=== PATIENT | male | born 1945 | race Asian ===

== ENCOUNTER 2022-11-13 09:21 | Inpatient (IN) | payer MEDICARE, OTHER ==
[2022-11-13] VITALS (14 sets, daily range): BP systolic 84–138; BP diastolic 34–55; PULSE 46–110; RESP 17–19; TEMP 91–91.4; O2SAT 95–100
[~2022-11-13] VITALS: Ht 160 cm; Wt 50.0 kg
[2022-11-13] MEDS ORDERED: SODIUM CHLORIDE 0.9% 100 ML ONE (09:41)
[2022-11-13] MEDS ORDERED: IOHEXOL 350 MG/ML 100 ML VIAL ONE (09:41)
[2022-11-13] MEDS ORDERED: CALCIUM GLUCONATE 100 MG/ML 10 ML IVP ONE ×2 (09:45)
[2022-11-13] MEDS ORDERED: LABETALOL HCL 5 MG/ML 20 ML VIAL IVP PRN ×2 (09:45)
[2022-11-13] MEDS: OXYGEN THERAPY IH SCH ×2 (09:45→20:44)
[2022-11-13] MEDS ORDERED: ROCURONIUM BROMIDE 10 MG/ML 5 ML VIAL IVP ONE ×2 (09:45)
[2022-11-13 09:51] LABS: BASOPHILS % (AUTO) 0.2 % (0.0-2.0); EOSINOPHILS % (AUTO) 0.6 % (1.0-6.0); HEMOGLOBIN 9.7 g/dL (13.5-17.5); LYMPHOCYTES # (AUTO) 0.5 K/uL (1.0-4.8); LYMPHOCYTES % (AUTO) 8.2 % (22.0-44.0); MEAN CORPUSCULAR HEMOGLOBIN 36.4 pg (26.0-34.0); MEAN CORPUSCULAR HGB CONC 33.4 G/dL (31.0-37.0); MEAN CORPUSCULAR VOLUME 109 fL (80-100); MONOCYTES # (AUTO) 0.4 K/uL (0.1-1.0); MONOCYTES % (AUTO) 6.2 % (2.0-9.0); NEUTROPHILS # (AUTO) 5.6 K/uL (1.8-7.7); NEUTROPHILS % (AUTO) 84.8 % (40.0-70.0); PLATELET COUNT (AUTO) 110 K/uL (150-450); RED BLOOD CELL COUNT(AUTO) 2.67 MIL/uL (4.50-5.90); RED CELL DISTRIBUTION WIDTH 16.6 % (11.5-14.5)
[2022-11-13 10:05] LABS: INR 1.1 (0.9-1.1); PROTHROMBIN TIME 11.2 SEC (9.4-11.6)
[2022-11-13 10:07] LABS: CALCIUM, TOTAL 7.8 mg/dL (8.8-10.5); CREATININE 5.51 mg/dL (0.60-1.30); POTASSIUM 4.3 mmol/L (3.5-5.1)
[2022-11-13 10:12] LABS: ALBUMIN 2.5 g/dL (3.4-5.0); BILIRUBIN,TOTAL 0.5 mg/dL (0.1-1.0); TOTAL PROTEIN, SERUM 6.3 g/dL (6.4-8.2)
[2022-11-13] MEDS ORDERED: AMIODARONE HCL 50 MG/ML 3 ML VIAL IVP ONE (10:30)
[2022-11-13] MEDS ORDERED: NOREPINEPHRINE 8 MG/0.9 % NACL 250 ML IV ONE (10:58)
[2022-11-13] MEDS: NOREPINEPHRINE 8 MG/0.9 % NACL 250 ML IV PRN (11:07)
[2022-11-13 11:28] LABS: ABG BASE EXCESS -6.2 mmol/L (-2.0-3.0); ABG CARBOXYHEMOGLOBIN 0.7 % (0.0-1.5); ABG HCO3 19.8 mmol/L (22.0-26.0); ABG METHEMOGLOBIN 0.3 % (0.0-1.5); ABG OXYGEN CONTENT 14.1 mL/dL (15.0-23.0); ABG OXYGEN SATURATION 97.2 % (95.0-98.0); ABG OXYHEMOGLOBIN 96.2 % (94.0-100.0); ABG PCO2 39 mmHg (35-45); ABG PH 7.326 (7.35-7.450); ABG TOTAL HEMOGLOBIN 10.3 G/dL (12.0-18.0); PO2, ARTERIAL BG 109.1 mmHg (75.0-83.0); SOURCE, BLOOD GAS ARTERIAL; TEMPERATURE, FAHRENHEIT, BG 98.5 FAHREN (96.0-98.6)
[2022-11-13 11:30] LABS: ABG A-A DIFF O2 565.5 mmHg (10-20.0); O2 DEVICE,BLOOD GAS VENTILATOR (ROOM AIR); SITE, BLOOD GAS RT BRACHIAL
[2022-11-13 11:31] LABS: PEEP,BG 5 cm H2O; SPONTANEOUS VT, BG 576 ml; VT, ABG 420 ml
[2022-11-13] MEDS ORDERED: PHENYLEPHRINE 200 MG/D5%-WATER 250 ML IV PRN (11:45)
[2022-11-13] MEDS ORDERED: LEVO75 PO (14:08)
[2022-11-13] MEDS ORDERED: GABA-1216 PO (14:08)
[2022-11-13 14:22] LABS: LACTIC ACID 2.9 mmol/L (0.4-2.0)
[2022-11-13 16:07] LABS: COVID AG,FIA SOURCE NASOPHARYNGEAL
[2022-11-13] MEDS ORDERED: AMIODARONE HCL 360 MG in DEXTROSE 5%-WATER 242.8 ML IV ONE (16:15)
[2022-11-13] MEDS ORDERED: ONDANSETRON HCL 4 MG/2 ML VIAL IVP PRN (19:00)
[2022-11-13] MEDS ORDERED: BISACODYL 10 MG RECTAL RECTAL SUPPOSITORY PR PRN (19:00)
[2022-11-13] MEDS ORDERED: MAGNESIUM HYDROXIDE SUSPENSION 30 ML UDCUP PO PRN (19:00)
[2022-11-13] MEDS ORDERED: PIPERACILLIN/TAZO 3.375 GM/D5W 50 ML IV SCH (19:15)
[2022-11-13 20:01] LABS: CALCIUM, TOTAL 7.1 mg/dL (8.8-10.5); CREATININE 5.28 mg/dL (0.60-1.30); POTASSIUM 3.6 mmol/L (3.5-5.1)
[2022-11-13 20:07] LABS: ALBUMIN 2.1 g/dL (3.4-5.0); BILIRUBIN,TOTAL 0.7 mg/dL (0.1-1.0); MAGNESIUM 2.1 mg/dL (1.80-2.40); PHOSPHORUS 5.4 mg/dL (2.5-4.9); TOTAL PROTEIN, SERUM 5.5 g/dL (6.4-8.2)
[2022-11-13 20:33] LABS: ABG A-A DIFF O2 388.8 mmHg (10-20.0); ABG BASE EXCESS -7.7 mmol/L (-2.0-3.0); ABG HCO3 18.7 mmol/L (22.0-26.0); ABG METHEMOGLOBIN 0.3 % (0.0-1.5); ABG OXYGEN CONTENT 14.6 mL/dL (15.0-23.0); ABG OXYGEN SATURATION 98.4 % (95.0-98.0); ABG OXYHEMOGLOBIN 97.1 % (94.0-100.0); ABG PCO2 33 mmHg (35-45); ABG PH 7.351 (7.35-7.450); ABG TOTAL HEMOGLOBIN 10.5 G/dL (12.0-18.0); O2 DEVICE,BLOOD GAS VENT (ROOM AIR); PO2, ARTERIAL BG 114.6 mmHg (75.0-83.0); SITE, BLOOD GAS ARTERIAL LINE; SOURCE, BLOOD GAS ARTERIAL; TEMPERATURE, FAHRENHEIT, BG 94.8 FAHREN (96.0-98.6); VT, ABG 420 ml
[2022-11-13 20:34] LABS: PEEP,BG 5 cm H2O
[2022-11-13] MEDS: PIPERACILLIN SODIUM/TAZOBACTAM 2.25 GM in DEXTROSE 5%-WATER 50 ML IV SCH (20:44)
[2022-11-13] MEDS: DOCUSATE SODIUM 100 MG CAPSULE PO SCH (20:45)
[2022-11-13] MEDS ORDERED: VANCOMYCIN 1GM/WATER(PEG/NADA) 200 ML IV ONE (21:15)
[2022-11-13] MEDS ORDERED: VANCOMYCIN 1GM/WATER(PEG/NADA) 200 ML IV PRN (21:15)
[2022-11-13 21:23] LABS: CALCIUM, TOTAL 7.1 mg/dL (8.8-10.5); CREATININE 5.38 mg/dL (0.60-1.30); POTASSIUM 3.5 mmol/L (3.5-5.1)
[2022-11-13 21:26] LABS: PHOSPHORUS 5.4 mg/dL (2.5-4.9)
[2022-11-13] MEDS ORDERED: AMIODARONE HCL 540 MG in DEXTROSE 5%-WATER 239.2 ML IV ONE (22:30)
[2022-11-14] VITALS (47 sets, daily range): BP systolic 66–160; BP diastolic 29–93; PULSE 44–73; RESP 18–23; TEMP 91.2–99; O2SAT 96–100
[2022-11-14 02:00] LABS: ABG BASE EXCESS -10.4 mmol/L (-2.0-3.0); ABG CARBOXYHEMOGLOBIN 0.4 % (0.0-1.5); ABG HCO3 16.9 mmol/L (22.0-26.0); ABG METHEMOGLOBIN 0.3 % (0.0-1.5); ABG OXYGEN CONTENT 14.4 mL/dL (15.0-23.0); ABG OXYGEN SATURATION 99.2 % (95.0-98.0); ABG OXYHEMOGLOBIN 98.5 % (94.0-100.0); ABG PCO2 28 mmHg (35-45); ABG PH 7.351 (7.35-7.450); SOURCE, BLOOD GAS ARTERIAL; TEMPERATURE, FAHRENHEIT, BG 92.4 FAHREN (96.0-98.6)
[2022-11-14 02:01] LABS: ABG A-A DIFF O2 311.7 mmHg (10-20.0); O2 DEVICE,BLOOD GAS VENT (ROOM AIR); PEEP,BG 5 cm H2O; SITE, BLOOD GAS ARTERIAL LINE; VT, ABG 420 ml
[2022-11-14 02:33] LABS: ALBUMIN 2.3 g/dL (3.4-5.0); BILIRUBIN,TOTAL 0.7 mg/dL (0.1-1.0); CALCIUM, TOTAL 7.2 mg/dL (8.8-10.5); CREATININE 5.34 mg/dL (0.60-1.30); MAGNESIUM 2.2 mg/dL (1.80-2.40); PHOSPHORUS 5.5 mg/dL (2.5-4.9); POTASSIUM 3.6 mmol/L (3.5-5.1); TOTAL PROTEIN, SERUM 5.8 g/dL (6.4-8.2)
[2022-11-14] MEDS: PIPERACILLIN SODIUM/TAZOBACTAM 2.25 GM in DEXTROSE 5%-WATER 50 ML IV SCH ×3 (04:27→20:24)
[2022-11-14 07:54] LABS: BASOPHILS % (AUTO) 0.2 % (0.0-2.0); EOSINOPHILS % (AUTO) 1.1 % (1.0-6.0); HEMATOCRIT 28.4 % (41-53); HEMOGLOBIN 9.4 g/dL (13.5-17.5); LYMPHOCYTES # (AUTO) 0.1 K/uL (1.0-4.8); LYMPHOCYTES % (AUTO) 1.8 % (22.0-44.0); MEAN CORPUSCULAR HEMOGLOBIN 36.2 pg (26.0-34.0); MEAN CORPUSCULAR HGB CONC 33.1 G/dL (31.0-37.0); MEAN CORPUSCULAR VOLUME 109 fL (80-100); MONOCYTES # (AUTO) 0.4 K/uL (0.1-1.0); MONOCYTES % (AUTO) 5.6 % (2.0-9.0); NEUTROPHILS # (AUTO) 6.9 K/uL (1.8-7.7); PLATELET COUNT (AUTO) 112 K/uL (150-450); RED CELL DISTRIBUTION WIDTH 16.4 % (11.5-14.5)
[2022-11-14 07:57] LABS: NEUTROPHILS % (AUTO) 91.3 % (40.0-70.0)
[2022-11-14 08:13] LABS: ALBUMIN 2.2 g/dL (3.4-5.0); BILIRUBIN,TOTAL 0.8 mg/dL (0.1-1.0); CALCIUM, TOTAL 7.3 mg/dL (8.8-10.5); CREATININE 5.48 mg/dL (0.60-1.30); MAGNESIUM 2.1 mg/dL (1.80-2.40); PHOSPHORUS 6.2 mg/dL (2.5-4.9); POTASSIUM 4.7 mmol/L (3.5-5.1)
[2022-11-14] MEDS: NOREPINEPHRINE 8 MG/0.9 % NACL 250 ML IV PRN (08:23)
[2022-11-14] MEDS: AMIODARONE HCL 200 MG TABLET NG SCH ×3 (09:52→21:00)
[2022-11-14] MEDS: PANTOPRAZOLE SODIUM 40 MG/VIAL IVP SCH (09:52)
[2022-11-14] MEDS: DOCUSATE SODIUM 100 MG CAPSULE PO SCH ×2 (09:54→22:19)
[2022-11-14] MEDS ORDERED: HEPARIN SODIUM,PORCINE 1,000 UNITS/ML VIAL IVP ONE (12:00)
[2022-11-14] MEDS: DEXMEDETOMIDINE HCL 400 MCG in SODIUM CHLORIDE 0.9% 96 ML IV PRN (15:08)
[2022-11-14] MEDS: MORPHINE SULFATE 2 MG/ML SYRINGE IVP PRN (15:55)
[2022-11-14] MEDS: ACETAMINOPHEN 325 MG TABLET PO PRN (15:55)
[2022-11-14 16:10] LABS: ALBUMIN 2.3 g/dL (3.4-5.0); BILIRUBIN,TOTAL 0.8 mg/dL (0.1-1.0); CALCIUM, TOTAL 7.3 mg/dL (8.8-10.5); CREATININE 5.41 mg/dL (0.60-1.30); MAGNESIUM 2.1 mg/dL (1.80-2.40); PHOSPHORUS 5.7 mg/dL (2.5-4.9); POTASSIUM 4.6 mmol/L (3.5-5.1); TOTAL PROTEIN, SERUM 5.9 g/dL (6.4-8.2)
[2022-11-14] MEDS ORDERED: AMIODARONE HCL 750 MG in DEXTROSE 5%-WATER 485 ML IV SCH (16:15)
[2022-11-14] MEDS ORDERED: EPINEPHrine 1:10,000 [1 MG/10 ML] SYRINGE IVP ONE (17:18)
[2022-11-14] MEDS ORDERED: SODIUM CHLORIDE 0.9% 1,000 ML ONE (18:46)
[2022-11-14] MEDS ORDERED: SEVE0.8P6 PO (19:32)
[2022-11-14] MEDS ORDERED: HEPA500018 SQ (19:32)
[2022-11-14] MEDS ORDERED: HYDR2TAB37 PO (19:32)
[2022-11-14] MEDS ORDERED: ASCO500C6 PO (19:32)
[2022-11-14] MEDS ORDERED: GABA-1216 PO (19:32)
[2022-11-14] MEDS ORDERED: MELA5TAB40 PO (19:32)
[2022-11-14] MEDS ORDERED: MULT-248 PO (19:32)
[2022-11-14] MEDS ORDERED: ERGO500054 PO (19:32)
[2022-11-14] MEDS ORDERED: HYDR-4723 PO (19:32)
[2022-11-14 20:58] LABS: ALBUMIN 2.6 g/dL (3.4-5.0); BILIRUBIN,TOTAL 0.8 mg/dL (0.1-1.0); CALCIUM, TOTAL 8.5 mg/dL (8.8-10.5); CREATININE 2.92 mg/dL (0.60-1.30); PHOSPHORUS 2.9 mg/dL (2.5-4.9); POTASSIUM 3.9 mmol/L (3.5-5.1); TOTAL PROTEIN, SERUM 6.6 g/dL (6.4-8.2)
[2022-11-14] MEDS ORDERED: SODIUM CHLORIDE 0.9% 250 ML IV ONE (21:50)
[2022-11-14] MEDS ORDERED: HEPARIN SODIUM,PORCINE 1,000 UNITS/ML VIAL IVCATH ONE ×2 (22:00)
[2022-11-15] VITALS (17 sets, daily range): BP systolic 110–180; BP diastolic 36–49; PULSE 47–63; RESP 16–24; TEMP 98.4–100.1; O2SAT 98–100
[2022-11-15] MEDS: PIPERACILLIN SODIUM/TAZOBACTAM 2.25 GM in DEXTROSE 5%-WATER 50 ML IV SCH ×4 (03:58→21:09)
[2022-11-15] MEDS ORDERED: SODIUM CHLORIDE 0.9% 250 ML IV ONE (05:13)
[2022-11-15] MEDS: NOREPINEPHRINE 8 MG/0.9 % NACL 250 ML IV PRN (05:20)
[2022-11-15 05:31] LABS: BASOPHILS % (AUTO) 0.1 % (0.0-2.0); EOSINOPHILS % (AUTO) 0.1 % (1.0-6.0); HEMATOCRIT 24.2 % (41-53); HEMOGLOBIN 8.2 g/dL (13.5-17.5); LYMPHOCYTES # (AUTO) 0.2 K/uL (1.0-4.8); LYMPHOCYTES % (AUTO) 2.3 % (22.0-44.0); MEAN CORPUSCULAR HEMOGLOBIN 35.9 pg (26.0-34.0); MEAN CORPUSCULAR HGB CONC 33.7 G/dL (31.0-37.0); MEAN CORPUSCULAR VOLUME 107 fL (80-100); MONOCYTES # (AUTO) 0.4 K/uL (0.1-1.0); MONOCYTES % (AUTO) 5.7 % (2.0-9.0); NEUTROPHILS # (AUTO) 6.1 K/uL (1.8-7.7); PLATELET COUNT (AUTO) 101 K/uL (150-450); RED BLOOD CELL COUNT(AUTO) 2.27 MIL/uL (4.50-5.90); RED CELL DISTRIBUTION WIDTH 16.3 % (11.5-14.5)
[2022-11-15 05:42] LABS: ALBUMIN 2.1 g/dL (3.4-5.0); BILIRUBIN,TOTAL 0.9 mg/dL (0.1-1.0); CALCIUM, TOTAL 7.7 mg/dL (8.8-10.5); CREATININE 2.66 mg/dL (0.60-1.30); POTASSIUM 3.5 mmol/L (3.5-5.1); TOTAL PROTEIN, SERUM 5.7 g/dL (6.4-8.2)
[2022-11-15 06:24] LABS: NEUTROPHILS % (AUTO) 91.8 % (40.0-70.0)
[2022-11-15] MEDS ORDERED: VANCOMYCIN HCL 750 MG in DEXTROSE 5%-WATER 250 ML IV ONE (08:00)
[2022-11-15] MEDS: PANTOPRAZOLE SODIUM 40 MG/VIAL IVP SCH (09:22)
[2022-11-15] MEDS: ACETAMINOPHEN 325 MG TABLET PO PRN (09:23)
[2022-11-15] MEDS: DOCUSATE SODIUM 100 MG CAPSULE PO SCH ×2 (09:23→21:10)
[2022-11-15] MEDS: MORPHINE SULFATE 2 MG/ML SYRINGE IVP PRN ×2 (09:23→18:31)
[2022-11-15 13:59] LABS: ABG BASE EXCESS 0.2 mmol/L (-2.0-3.0); ABG HCO3 24.8 mmol/L (22.0-26.0); ABG METHEMOGLOBIN 0.3 % (0.0-1.5); ABG OXYGEN CONTENT 10.8 mL/dL (15.0-23.0); ABG OXYHEMOGLOBIN 95.7 % (94.0-100.0); ABG PCO2 33 mmHg (35-45); ABG PH 7.476 (7.35-7.450); PO2, ARTERIAL BG 91.3 mmHg (75.0-83.0); SOURCE, BLOOD GAS ARTERIAL; TEMPERATURE, FAHRENHEIT, BG 100.4 FAHREN (96.0-98.6)
[2022-11-15 14:00] LABS: ABG A-A DIFF O2 83.1 mmHg (10-20.0); ABG TOTAL HEMOGLOBIN 7.9 G/dL (12.0-18.0); O2 DEVICE,BLOOD GAS VENTILATOR (ROOM AIR); SITE, BLOOD GAS ARTERIAL LINE; VENT MODE, BG CPAP (ROOM AIR)
[2022-11-15 14:01] LABS: CPAP, BG 5 cm H2O; PRESSURE SUPPORT, BG 8 cm H2O; SPONTANEOUS VT, BG 791 ml
[2022-11-15] MEDS: DEXMEDETOMIDINE HCL 400 MCG in SODIUM CHLORIDE 0.9% 96 ML IV PRN (14:56)
[2022-11-16] VITALS (16 sets, daily range): BP systolic 106–129; BP diastolic 32–39; PULSE 43–95; RESP 18–24; TEMP 99–100.5; O2SAT 88–100
[2022-11-16] MEDS: PIPERACILLIN SODIUM/TAZOBACTAM 2.25 GM in DEXTROSE 5%-WATER 50 ML IV SCH ×3 (03:05→20:36)
[2022-11-16] MEDS: ACETAMINOPHEN 325 MG TABLET PO PRN ×2 (03:05→18:56)
[2022-11-16 05:34] LABS: BASOPHILS % (AUTO) 0.1 % (0.0-2.0); EOSINOPHILS % (AUTO) 0.3 % (1.0-6.0); HEMATOCRIT 23.6 % (41-53); HEMOGLOBIN 7.9 g/dL (13.5-17.5); LYMPHOCYTES # (AUTO) 0.2 K/uL (1.0-4.8); LYMPHOCYTES % (AUTO) 2.9 % (22.0-44.0); MEAN CORPUSCULAR HEMOGLOBIN 35.7 pg (26.0-34.0); MEAN CORPUSCULAR HGB CONC 33.5 G/dL (31.0-37.0); MEAN CORPUSCULAR VOLUME 106 fL (80-100); MONOCYTES # (AUTO) 0.3 K/uL (0.1-1.0); MONOCYTES % (AUTO) 4.7 % (2.0-9.0); NEUTROPHILS # (AUTO) 6.7 K/uL (1.8-7.7); PLATELET COUNT (AUTO) 105 K/uL (150-450); RED BLOOD CELL COUNT(AUTO) 2.22 MIL/uL (4.50-5.90); RED CELL DISTRIBUTION WIDTH 16.4 % (11.5-14.5)
[2022-11-16 05:50] LABS: BILIRUBIN,TOTAL 0.8 mg/dL (0.1-1.0); CALCIUM, TOTAL 7.6 mg/dL (8.8-10.5); CREATININE 3.79 mg/dL (0.60-1.30); POTASSIUM 3.4 mmol/L (3.5-5.1); TOTAL PROTEIN, SERUM 5.5 g/dL (6.4-8.2)
[2022-11-16 05:52] LABS: PHOSPHORUS 2.7 mg/dL (2.5-4.9)
[2022-11-16] MEDS ORDERED: SODIUM CHLORIDE 0.9% 500 ML IV ONE (06:01)
[2022-11-16 10:46] LABS: HEMATOCRIT 23.1 % (41-53); HEMOGLOBIN 7.5 g/dL (13.5-17.5)
[2022-11-16] MEDS: PANTOPRAZOLE SODIUM 40 MG/VIAL IVP SCH (12:00)
[2022-11-16] MEDS: DOCUSATE SODIUM 100 MG CAPSULE PO SCH ×2 (12:00→20:36)
[2022-11-16] MEDS: DEXMEDETOMIDINE HCL 400 MCG in SODIUM CHLORIDE 0.9% 96 ML IV PRN (20:37)
[2022-11-17] VITALS (18 sets, daily range): BP systolic 91–126; BP diastolic 37–95; PULSE 48–93; RESP 16–20; TEMP 97.4–99.8; O2SAT 99–100
[2022-11-17] MEDS: PIPERACILLIN SODIUM/TAZOBACTAM 2.25 GM in DEXTROSE 5%-WATER 50 ML IV SCH ×3 (04:12→20:24)
[2022-11-17 06:01] LABS: BASOPHILS % (AUTO) 0.1 % (0.0-2.0); EOSINOPHILS % (AUTO) 0.9 % (1.0-6.0); HEMATOCRIT 24.3 % (41-53); HEMOGLOBIN 7.9 g/dL (13.5-17.5); LYMPHOCYTES # (AUTO) 0.3 K/uL (1.0-4.8); LYMPHOCYTES % (AUTO) 4.1 % (22.0-44.0); MEAN CORPUSCULAR HEMOGLOBIN 34.4 pg (26.0-34.0); MEAN CORPUSCULAR HGB CONC 32.4 G/dL (31.0-37.0); MEAN CORPUSCULAR VOLUME 106 fL (80-100); MONOCYTES # (AUTO) 0.5 K/uL (0.1-1.0); MONOCYTES % (AUTO) 7.1 % (2.0-9.0); PLATELET COUNT (AUTO) 111 K/uL (150-450); RED BLOOD CELL COUNT(AUTO) 2.28 MIL/uL (4.50-5.90); RED CELL DISTRIBUTION WIDTH 16.6 % (11.5-14.5)
[2022-11-17 06:15] LABS: ALBUMIN 1.9 g/dL (3.4-5.0); BILIRUBIN,TOTAL 0.8 mg/dL (0.1-1.0); CALCIUM, TOTAL 7.7 mg/dL (8.8-10.5); CREATININE 4.6 mg/dL (0.60-1.30); POTASSIUM 3.4 mmol/L (3.5-5.1); TOTAL PROTEIN, SERUM 5.7 g/dL (6.4-8.2)
[2022-11-17 06:38] LABS: NEUTROPHILS % (AUTO) 87.8 % (40.0-70.0)
[2022-11-17] MEDS: PANTOPRAZOLE SODIUM 40 MG/VIAL IVP SCH (08:34)
[2022-11-17] MEDS: DOCUSATE SODIUM 100 MG CAPSULE PO SCH ×2 (08:34→20:25)
[2022-11-17] MEDS: EPOETIN ALFA 10,000 UNITS/ML VIAL SQ SCH (11:57)
[2022-11-17] MEDS ORDERED: HEPARIN SODIUM,PORCINE 1,000 UNITS/ML VIAL IVP ONE (12:00)
[2022-11-17 12:57] LABS: ABG BASE EXCESS 1.6 mmol/L (-2.0-3.0); ABG CARBOXYHEMOGLOBIN 1.2 % (0.0-1.5); ABG HCO3 25.9 mmol/L (22.0-26.0); ABG METHEMOGLOBIN 0.3 % (0.0-1.5); ABG OXYGEN CONTENT 11.9 mL/dL (15.0-23.0); ABG OXYGEN SATURATION 98.1 % (95.0-98.0); ABG OXYHEMOGLOBIN 96.6 % (94.0-100.0); ABG PCO2 38 mmHg (35-45); ABG PH 7.445 (7.35-7.450); ABG TOTAL HEMOGLOBIN 8.6 G/dL (12.0-18.0); PO2, ARTERIAL BG 107.7 mmHg (75.0-83.0); SOURCE, BLOOD GAS ARTERIAL; TEMPERATURE, FAHRENHEIT, BG 97.9 FAHREN (96.0-98.6)
[2022-11-17 12:58] LABS: ABG A-A DIFF O2 61.6 mmHg (10-20.0); O2 DEVICE,BLOOD GAS VENTILATOR (ROOM AIR); SITE, BLOOD GAS RT RADIAL
[2022-11-17 13:01] LABS: PEEP,BG 5 cm H2O; PRESSURE SUPPORT, BG 10 cm H2O; SPONTANEOUS VT, BG 413 ml
[2022-11-17 13:03] LABS: VENT MODE, BG SPONTANEOUS (ROOM AIR); VT, ABG 420 ml
[2022-11-17] MEDS ORDERED: DEXTROSE 50%-WATER 25 GM/50 ML SYRINGE IVP PRN (13:15)
[2022-11-17] MEDS: INSULIN LISPRO 100 UNITS/ML SQ PRN (13:24)
[2022-11-17] MEDS ORDERED: SODIUM CHLORIDE 0.9% 2,000 ML ONE (15:52)
[2022-11-17] MEDS ORDERED: HEPARIN SODIUM,PORCINE 1,000 UNITS/ML VIAL IVCATH ONE ×2 (19:15)
[2022-11-17] MEDS: NOREPINEPHRINE 8 MG/0.9 % NACL 250 ML IV PRN (20:24)
[2022-11-17] MEDS: MORPHINE SULFATE 2 MG/ML SYRINGE IVP PRN (21:09)
[2022-11-18] VITALS: BP 88/73; PULSE 94; RESP 20; TEMP 98
[2022-11-18 04:00] VITALS: BP 98/64; PULSE 86; PULSE 91; RESP 18; TEMP 98.1
[2022-11-18] MEDS: PIPERACILLIN SODIUM/TAZOBACTAM 2.25 GM in DEXTROSE 5%-WATER 50 ML IV SCH ×3 (04:03→20:05)
[2022-11-18 05:41] LABS: EOSINOPHILS % (AUTO) 0.1 % (1.0-6.0); HEMATOCRIT 24.3 % (41-53); HEMOGLOBIN 7.9 g/dL (13.5-17.5); LYMPHOCYTES # (AUTO) 0.2 K/uL (1.0-4.8); LYMPHOCYTES % (AUTO) 3.3 % (22.0-44.0); MEAN CORPUSCULAR HEMOGLOBIN 34.7 pg (26.0-34.0); MEAN CORPUSCULAR HGB CONC 32.5 G/dL (31.0-37.0); MEAN CORPUSCULAR VOLUME 107 fL (80-100); MONOCYTES # (AUTO) 0.6 K/uL (0.1-1.0); MONOCYTES % (AUTO) 9.1 % (2.0-9.0); PLATELET COUNT (AUTO) 110 K/uL (150-450); RED BLOOD CELL COUNT(AUTO) 2.27 MIL/uL (4.50-5.90); RED CELL DISTRIBUTION WIDTH 16.5 % (11.5-14.5)
[2022-11-18 05:46] LABS: NEUTROPHILS % (AUTO) 87.5 % (40.0-70.0)
[2022-11-18 05:55] LABS: ALBUMIN 2.1 g/dL (3.4-5.0); CALCIUM, TOTAL 7.8 mg/dL (8.8-10.5); CREATININE 2.44 mg/dL (0.60-1.30); POTASSIUM 3.5 mmol/L (3.5-5.1); TOTAL PROTEIN, SERUM 6.1 g/dL (6.4-8.2); VANCOMYCIN,RANDOM 16.9 mcg/mL (25.0-50.0)
[2022-11-18 08:00] VITALS: BP 107/49; PULSE 84; RESP 18; TEMP 97.8
[2022-11-18] MEDS: DOCUSATE SODIUM 100 MG CAPSULE PO SCH ×2 (09:00→20:07)
[2022-11-18] MEDS: PANTOPRAZOLE SODIUM 40 MG/VIAL IVP SCH (09:17)
[2022-11-18 12:00] VITALS: BP 91/36; PULSE 85; RESP 17; TEMP 97.7
[2022-11-18] MEDS ORDERED: VANCOMYCIN HCL 750 MG in DEXTROSE 5%-WATER 250 ML IV ONE (12:00)
[2022-11-18] MEDS ORDERED: HydrALAZINE HCL 20 MG/ML VIAL IVP PRN (14:15)
[2022-11-18 16:00] VITALS: BP 126/43; PULSE 75; RESP 16; TEMP 98.3
[2022-11-18] MEDS ORDERED: SODIUM CHLORIDE 0.9% 250 ML IV ONE (16:02)
[2022-11-18 20:00] VITALS: BP 132/48; PULSE 78; PULSE 84; RESP 18; TEMP 98.8
[2022-11-18] MEDS: MORPHINE SULFATE 2 MG/ML SYRINGE IVP PRN (20:07)
[2022-11-18 23:06] LABS: QUANTIFERON, TB GOLD PLUS Positive (Negative)
[2022-11-19] VITALS (14 sets, daily range): BP systolic 110–136; BP diastolic 36–44; PULSE 62–79; RESP 17–20; TEMP 97.8–98.7
[2022-11-19] MEDS: MORPHINE SULFATE 2 MG/ML SYRINGE IVP PRN ×2 (01:14→22:44)
[2022-11-19] MEDS: PIPERACILLIN SODIUM/TAZOBACTAM 2.25 GM in DEXTROSE 5%-WATER 50 ML IV SCH ×3 (04:27→20:27)
[2022-11-19 05:51] LABS: EOSINOPHILS % (AUTO) 0.6 % (1.0-6.0); HEMATOCRIT 21.7 % (41-53); HEMOGLOBIN 7.1 g/dL (13.5-17.5); LYMPHOCYTES # (AUTO) 0.3 K/uL (1.0-4.8); LYMPHOCYTES % (AUTO) 5.3 % (22.0-44.0); MEAN CORPUSCULAR HEMOGLOBIN 34.8 pg (26.0-34.0); MEAN CORPUSCULAR HGB CONC 32.5 G/dL (31.0-37.0); MEAN CORPUSCULAR VOLUME 107 fL (80-100); MONOCYTES # (AUTO) 0.5 K/uL (0.1-1.0); MONOCYTES % (AUTO) 8.1 % (2.0-9.0); PLATELET COUNT (AUTO) 105 K/uL (150-450); RED BLOOD CELL COUNT(AUTO) 2.03 MIL/uL (4.50-5.90); RED CELL DISTRIBUTION WIDTH 16.6 % (11.5-14.5)
[2022-11-19 06:14] LABS: ALBUMIN 1.9 g/dL (3.4-5.0); BILIRUBIN,TOTAL 0.8 mg/dL (0.1-1.0); CALCIUM, TOTAL 7.3 mg/dL (8.8-10.5); CREATININE 3.65 mg/dL (0.60-1.30); POTASSIUM 3.7 mmol/L (3.5-5.1); TOTAL PROTEIN, SERUM 5.7 g/dL (6.4-8.2)
[2022-11-19] MEDS: DOCUSATE SODIUM 100 MG CAPSULE PO SCH ×2 (08:14→20:27)
[2022-11-19] MEDS: PANTOPRAZOLE SODIUM 40 MG/VIAL IVP SCH (08:14)
[2022-11-19] MEDS: EPOETIN ALFA 10,000 UNITS/ML VIAL SQ SCH (08:17)
[2022-11-19] MEDS ORDERED: HEPARIN SODIUM,PORCINE 1,000 UNITS/ML VIAL IVP ONE (16:51)
[2022-11-20] VITALS: BP 121/61; PULSE 67; PULSE 68; RESP 17; TEMP 98
[2022-11-20] MEDS: PIPERACILLIN SODIUM/TAZOBACTAM 2.25 GM in DEXTROSE 5%-WATER 50 ML IV SCH ×3 (03:59→20:17)
[2022-11-20 04:00] VITALS: BP 133/44; PULSE 74; PULSE 76; RESP 17; TEMP 97.7
[2022-11-20 06:29] LABS: BASOPHILS % (AUTO) 0.1 % (0.0-2.0); EOSINOPHILS % (AUTO) 0.7 % (1.0-6.0); HEMATOCRIT 23.7 % (41-53); HEMOGLOBIN 7.7 g/dL (13.5-17.5); LYMPHOCYTES # (AUTO) 0.4 K/uL (1.0-4.8); MEAN CORPUSCULAR HEMOGLOBIN 34.8 pg (26.0-34.0); MEAN CORPUSCULAR HGB CONC 32.6 G/dL (31.0-37.0); MEAN CORPUSCULAR VOLUME 107 fL (80-100); MONOCYTES # (AUTO) 0.6 K/uL (0.1-1.0); MONOCYTES % (AUTO) 9.1 % (2.0-9.0); NEUTROPHILS # (AUTO) 5.5 K/uL (1.8-7.7); NEUTROPHILS % (AUTO) 84.1 % (40.0-70.0); PLATELET COUNT (AUTO) 115 K/uL (150-450); RED BLOOD CELL COUNT(AUTO) 2.22 MIL/uL (4.50-5.90); RED CELL DISTRIBUTION WIDTH 16.5 % (11.5-14.5)
[2022-11-20 06:53] LABS: ALBUMIN 2.1 g/dL (3.4-5.0); BILIRUBIN,TOTAL 0.8 mg/dL (0.1-1.0); CALCIUM, TOTAL 7.4 mg/dL (8.8-10.5); CREATININE 2.26 mg/dL (0.60-1.30); POTASSIUM 3.4 mmol/L (3.5-5.1); TOTAL PROTEIN, SERUM 6.2 g/dL (6.4-8.2)
[2022-11-20] MEDS: DOCUSATE SODIUM 100 MG CAPSULE PO SCH ×2 (07:55→20:56)
[2022-11-20 08:00] VITALS: BP 111/54; PULSE 67; RESP 16; TEMP 98
[2022-11-20] MEDS: PANTOPRAZOLE SODIUM 40 MG/VIAL IVP SCH (08:06)
[2022-11-20] MEDS ORDERED: METOPROLOL SUCCINATE 25 MG ER TABLET PO SCH (09:00)
[2022-11-20] MEDS: METOPROLOL TARTRATE 25 MG TABLET PO SCH ×2 (09:00→20:52)
[2022-11-20 12:00] VITALS: BP 98/66; PULSE 66; PULSE 68; RESP 16; TEMP 98.1
[2022-11-20 16:00] VITALS: BP 63/31; PULSE 65; PULSE 67; RESP 16; TEMP 98.4
[2022-11-20 20:00] VITALS: BP 91/45; PULSE 64; PULSE 67; RESP 18; TEMP 97.5
[2022-11-21] VITALS (21 sets, daily range): BP systolic 73–147; BP diastolic 30–77; PULSE 64–104; RESP 15–18; TEMP 97.7–98.7
[2022-11-21] MEDS: PIPERACILLIN SODIUM/TAZOBACTAM 2.25 GM in DEXTROSE 5%-WATER 50 ML IV SCH ×3 (03:51→20:27)
[2022-11-21] MEDS ORDERED: SODIUM CHLORIDE 0.9% 1,000 ML ONE (05:15)
[2022-11-21] MEDS ORDERED: HEPARIN SODIUM,PORCINE 1,000 UNITS/ML VIAL IVCATH ONE ×2 (07:30)
[2022-11-21] MEDS: METOPROLOL TARTRATE 25 MG TABLET PO SCH ×2 (09:00→20:24)
[2022-11-21] MEDS: DOCUSATE SODIUM 100 MG CAPSULE PO SCH ×2 (09:00→20:23)
[2022-11-21] MEDS: PANTOPRAZOLE SODIUM 40 MG/VIAL IVP SCH (09:45)
[2022-11-21] MEDS: EPOETIN ALFA 10,000 UNITS/ML VIAL SQ SCH (09:45)
[2022-11-21] MEDS: MIDODRINE HCL 5 MG TABLET PO SCH ×2 (12:15→20:26)
[2022-11-21] MEDS ORDERED: VANCOMYCIN 1GM/WATER(PEG/NADA) 200 ML IV ONE (17:00)
[2022-11-21] MEDS: INSULIN LISPRO 100 UNITS/ML SQ PRN (23:45)
[2022-11-22] VITALS: BP 109/62; PULSE 114; RESP 18; TEMP 98.8
[2022-11-22] MEDS: PIPERACILLIN SODIUM/TAZOBACTAM 2.25 GM in DEXTROSE 5%-WATER 50 ML IV SCH ×3 (03:42→21:06)
[2022-11-22] MEDS ORDERED: SODIUM CHLORIDE 0.9% 250 ML IV ONE (03:46)
[2022-11-22 04:00] VITALS: BP 129/43; PULSE 95; RESP 18; TEMP 98.6
[2022-11-22 05:30] LABS: BASOPHILS % (AUTO) 0.1 % (0.0-2.0); EOSINOPHILS % (AUTO) 0.3 % (1.0-6.0); HEMATOCRIT 26.8 % (41-53); HEMOGLOBIN 8.9 g/dL (13.5-17.5); LYMPHOCYTES # (AUTO) 0.4 K/uL (1.0-4.8); LYMPHOCYTES % (AUTO) 4.5 % (22.0-44.0); MEAN CORPUSCULAR HEMOGLOBIN 35.8 pg (26.0-34.0); MEAN CORPUSCULAR HGB CONC 33.3 G/dL (31.0-37.0); MEAN CORPUSCULAR VOLUME 108 fL (80-100); NEUTROPHILS # (AUTO) 7.7 K/uL (1.8-7.7); NEUTROPHILS % (AUTO) 84.1 % (40.0-70.0); PLATELET COUNT (AUTO) 176 K/uL (150-450); RED CELL DISTRIBUTION WIDTH 16.6 % (11.5-14.5)
[2022-11-22] MEDS: NOREPINEPHRINE 8 MG/0.9 % NACL 250 ML IV PRN (05:39)
[2022-11-22 06:42] LABS: ALBUMIN 2.3 g/dL (3.4-5.0); BILIRUBIN,TOTAL 0.8 mg/dL (0.1-1.0); CALCIUM, TOTAL 8.7 mg/dL (8.8-10.5); CREATININE 2.55 mg/dL (0.60-1.30); POTASSIUM 3.8 mmol/L (3.5-5.1); TOTAL PROTEIN, SERUM 6.8 g/dL (6.4-8.2)
[2022-11-22 08:00] VITALS: BP 131/73; PULSE 99; RESP 18; TEMP 98.5
[2022-11-22] MEDS: PANTOPRAZOLE SODIUM 40 MG/VIAL IVP SCH (08:40)
[2022-11-22] MEDS: DOCUSATE SODIUM 100 MG CAPSULE PO SCH ×2 (08:40→21:00)
[2022-11-22] MEDS: METOPROLOL TARTRATE 25 MG TABLET PO SCH ×2 (08:40→21:00)
[2022-11-22] MEDS: MIDODRINE HCL 5 MG TABLET PO SCH ×2 (08:40→21:06)
[2022-11-22 12:00] VITALS: BP 130/65; PULSE 91; RESP 23; TEMP 98.6
[2022-11-22 12:00] LABS: ABG BASE EXCESS -3.9 mmol/L (-2.0-3.0); ABG CARBOXYHEMOGLOBIN 0.9 % (0.0-1.5); ABG HCO3 21.4 mmol/L (22.0-26.0); ABG METHEMOGLOBIN 0.3 % (0.0-1.5); ABG OXYGEN CONTENT 11.5 mL/dL (15.0-23.0); ABG OXYGEN SATURATION 91.7 % (95.0-98.0); ABG OXYHEMOGLOBIN 90.6 % (94.0-100.0); ABG PCO2 36 mmHg (35-45); ABG PH 7.383 (7.35-7.450); PO2, ARTERIAL BG 63.4 mmHg (75.0-83.0); SOURCE, BLOOD GAS ARTERIAL; TEMPERATURE, FAHRENHEIT, BG 98.6 FAHREN (96.0-98.6)
[2022-11-22 12:01] LABS: ABG A-A DIFF O2 932.4 mmHg (10-20.0); O2 DEVICE,BLOOD GAS CANNULA (ROOM AIR); SITE, BLOOD GAS RT RADIAL
[2022-11-22] MEDS: INSULIN LISPRO 100 UNITS/ML SQ PRN ×2 (15:33→18:10)
[2022-11-22 16:00] VITALS: BP 118/65; PULSE 89; RESP 23; TEMP 98.4
[2022-11-22 20:00] VITALS: BP 112/66; PULSE 82; RESP 21; TEMP 98.5
[2022-11-23] VITALS: BP 128/75; PULSE 84; RESP 21; TEMP 98.7
[2022-11-23] MEDS: INSULIN LISPRO 100 UNITS/ML SQ PRN ×2 (00:46→06:07)
[2022-11-23] MEDS: PIPERACILLIN SODIUM/TAZOBACTAM 2.25 GM in DEXTROSE 5%-WATER 50 ML IV SCH ×3 (03:14→20:14)
[2022-11-23 04:00] VITALS: BP 123/71; PULSE 87; RESP 21; TEMP 97.9
[2022-11-23 05:38] LABS: BASOPHILS % (AUTO) 0.1 % (0.0-2.0); EOSINOPHILS % (AUTO) 0.1 % (1.0-6.0); HEMATOCRIT 24.2 % (41-53); HEMOGLOBIN 8.1 g/dL (13.5-17.5); LYMPHOCYTES # (AUTO) 0.4 K/uL (1.0-4.8); MEAN CORPUSCULAR HEMOGLOBIN 36.6 pg (26.0-34.0); MEAN CORPUSCULAR HGB CONC 33.5 G/dL (31.0-37.0); MEAN CORPUSCULAR VOLUME 109 fL (80-100); MONOCYTES # (AUTO) 0.9 K/uL (0.1-1.0); MONOCYTES % (AUTO) 8.3 % (2.0-9.0); PLATELET COUNT (AUTO) 154 K/uL (150-450); RED BLOOD CELL COUNT(AUTO) 2.21 MIL/uL (4.50-5.90)
[2022-11-23 05:44] LABS: NEUTROPHILS % (AUTO) 87.5 % (40.0-70.0)
[2022-11-23 05:48] LABS: ALBUMIN 2.1 g/dL (3.4-5.0); BILIRUBIN,TOTAL 0.7 mg/dL (0.1-1.0); CALCIUM, TOTAL 9.1 mg/dL (8.8-10.5); CREATININE 3.5 mg/dL (0.60-1.30); POTASSIUM 4.3 mmol/L (3.5-5.1); TOTAL PROTEIN, SERUM 6.3 g/dL (6.4-8.2)
[2022-11-23 08:00] VITALS: BP 116/61; PULSE 78; RESP 19; TEMP 97.8
[2022-11-23] MEDS: MIDODRINE HCL 5 MG TABLET PO SCH ×2 (08:39→21:55)
[2022-11-23] MEDS: PANTOPRAZOLE SODIUM 40 MG/VIAL IVP SCH (08:39)
[2022-11-23] MEDS: METOPROLOL TARTRATE 25 MG TABLET PO SCH ×2 (08:40→21:00)
[2022-11-23] MEDS: DOCUSATE SODIUM 100 MG CAPSULE PO SCH ×2 (08:40→21:00)
[2022-11-23 12:00] VITALS: BP 126/60; PULSE 76; RESP 30; TEMP 98.7
[2022-11-23 16:00] VITALS: BP 128/45; PULSE 78; RESP 18; TEMP 98.4
[2022-11-23 20:00] VITALS: BP 133/66; PULSE 75; RESP 22; TEMP 97.7
[2022-11-23] MEDS: NOREPINEPHRINE 8 MG/0.9 % NACL 250 ML IV PRN (20:14)
[2022-11-24] VITALS: BP 141/85; PULSE 81; RESP 21; TEMP 97.5
[2022-11-24] MEDS: PIPERACILLIN SODIUM/TAZOBACTAM 2.25 GM in DEXTROSE 5%-WATER 50 ML IV SCH ×3 (03:09→20:10)
[2022-11-24 04:00] VITALS: BP 109/69; PULSE 92; RESP 21; TEMP 98
[2022-11-24] MEDS: INSULIN LISPRO 100 UNITS/ML SQ PRN ×3 (05:58→23:32)
[2022-11-24 06:23] LABS: BASOPHILS % (AUTO) 0.1 % (0.0-2.0); EOSINOPHILS % (AUTO) 0.1 % (1.0-6.0); HEMATOCRIT 24.3 % (41-53); HEMOGLOBIN 8.2 g/dL (13.5-17.5); LYMPHOCYTES # (AUTO) 0.4 K/uL (1.0-4.8); LYMPHOCYTES % (AUTO) 2.5 % (22.0-44.0); MEAN CORPUSCULAR HEMOGLOBIN 36.5 pg (26.0-34.0); MEAN CORPUSCULAR HGB CONC 33.8 G/dL (31.0-37.0); MEAN CORPUSCULAR VOLUME 108 fL (80-100); MONOCYTES # (AUTO) 0.9 K/uL (0.1-1.0); MONOCYTES % (AUTO) 5.8 % (2.0-9.0); NEUTROPHILS # (AUTO) 14.8 K/uL (1.8-7.7); PLATELET COUNT (AUTO) 147 K/uL (150-450); RED BLOOD CELL COUNT(AUTO) 2.25 MIL/uL (4.50-5.90); RED CELL DISTRIBUTION WIDTH 17.4 % (11.5-14.5)
[2022-11-24 06:45] LABS: CALCIUM, TOTAL 9.7 mg/dL (8.8-10.5); CREATININE 4.48 mg/dL (0.60-1.30); POTASSIUM 4.4 mmol/L (3.5-5.1); VANCOMYCIN,RANDOM 30.7 mcg/mL (25.0-50.0)
[2022-11-24 07:11] LABS: NEUTROPHILS % (AUTO) 91.5 % (40.0-70.0)
[2022-11-24 08:00] VITALS: BP 91/53; PULSE 86; PULSE 92; RESP 20; TEMP 98.2
[2022-11-24] MEDS: PANTOPRAZOLE SODIUM 40 MG/VIAL IVP SCH (08:58)
[2022-11-24] MEDS: DOCUSATE SODIUM 100 MG CAPSULE PO SCH ×2 (08:58→20:10)
[2022-11-24] MEDS: METOPROLOL TARTRATE 25 MG TABLET PO SCH ×2 (08:59→20:10)
[2022-11-24] MEDS: MIDODRINE HCL 5 MG TABLET PO SCH ×2 (08:59→20:11)
[2022-11-24] MEDS: EPOETIN ALFA 10,000 UNITS/ML VIAL SQ SCH (08:59)
[2022-11-24 12:00] VITALS: BP 105/59; PULSE 78; RESP 18; TEMP 98.4
[2022-11-24] MEDS: VANCOMYCIN HCL 125 MG/2.5 ML SOLUTION ORAL.SYG PO SCH ×3 (13:22→23:30)
[2022-11-24 16:00] VITALS: BP 96/61; PULSE 75; RESP 25; TEMP 97.9
[2022-11-24 20:00] VITALS: BP 90/58; PULSE 73; RESP 21; TEMP 99.2
[2022-11-24 21:38] LABS: C.DIFF TOXINS A&B, Stool Negative (Negative)
[2022-11-24 21:40] LABS: C.DIFF GDH ANTIGEN, Stool Positive (Negative)
[2022-11-25] VITALS (13 sets, daily range): BP systolic 105–126; BP diastolic 52–73; PULSE 65–92; RESP 19–24; TEMP 97.9–99.4
[2022-11-25] MEDS: PIPERACILLIN SODIUM/TAZOBACTAM 2.25 GM in DEXTROSE 5%-WATER 50 ML IV SCH ×3 (03:22→20:36)
[2022-11-25 06:02] LABS: EOSINOPHILS % (AUTO) 0.4 % (1.0-6.0); HEMATOCRIT 24.9 % (41-53); LYMPHOCYTES # (AUTO) 0.2 K/uL (1.0-4.8); LYMPHOCYTES % (AUTO) 1.2 % (22.0-44.0); MEAN CORPUSCULAR HGB CONC 32.3 G/dL (31.0-37.0); MEAN CORPUSCULAR VOLUME 108 fL (80-100); MONOCYTES # (AUTO) 0.8 K/uL (0.1-1.0); MONOCYTES % (AUTO) 4.6 % (2.0-9.0); NEUTROPHILS # (AUTO) 16.8 K/uL (1.8-7.7); PLATELET COUNT (AUTO) 143 K/uL (150-450); RED CELL DISTRIBUTION WIDTH 18.1 % (11.5-14.5)
[2022-11-25] MEDS: VANCOMYCIN HCL 125 MG/2.5 ML SOLUTION ORAL.SYG PO SCH ×4 (06:14→23:43)
[2022-11-25] MEDS: INSULIN LISPRO 100 UNITS/ML SQ PRN ×2 (06:17→22:03)
[2022-11-25 06:19] LABS: BILIRUBIN,TOTAL 0.7 mg/dL (0.1-1.0); CALCIUM, TOTAL 10.3 mg/dL (8.8-10.5); CREATININE 5.35 mg/dL (0.60-1.30); POTASSIUM 4.3 mmol/L (3.5-5.1); TOTAL PROTEIN, SERUM 6.4 g/dL (6.4-8.2)
[2022-11-25 06:23] LABS: NEUTROPHILS % (AUTO) 93.8 % (40.0-70.0)
[2022-11-25] MEDS: PANTOPRAZOLE SODIUM 40 MG/VIAL IVP SCH (07:42)
[2022-11-25] MEDS: METOPROLOL TARTRATE 25 MG TABLET PO SCH ×2 (07:43→21:00)
[2022-11-25] MEDS: MIDODRINE HCL 5 MG TABLET PO SCH ×2 (07:43→22:06)
[2022-11-25] MEDS: DOCUSATE SODIUM 100 MG CAPSULE PO SCH ×2 (07:43→20:39)
[2022-11-25 14:38] LABS: CALCIUM, TOTAL 9.6 mg/dL (8.8-10.5); CREATININE 2.65 mg/dL (0.60-1.30); POTASSIUM 3.6 mmol/L (3.5-5.1)
[2022-11-25 14:44] LABS: ALBUMIN 1.9 g/dL (3.4-5.0); BILIRUBIN,TOTAL 0.8 mg/dL (0.1-1.0); TOTAL PROTEIN, SERUM 6.2 g/dL (6.4-8.2)
[2022-11-25] MEDS ORDERED: SODIUM CHLORIDE 0.9% 250 ML IV ONE (15:23)
[2022-11-25 22:31] LABS: GLUCOMETER DEV NAME(LOC) 5S.2C
[2022-11-26] VITALS (12 sets, daily range): BP systolic 99–125; BP diastolic 59–94; PULSE 70–95; RESP 19–22; TEMP 97.4–98.3; O2SAT 99
[2022-11-26] MEDS: PIPERACILLIN SODIUM/TAZOBACTAM 2.25 GM in DEXTROSE 5%-WATER 50 ML IV SCH ×3 (03:51→20:21)
[2022-11-26] MEDS: VANCOMYCIN HCL 125 MG/2.5 ML SOLUTION ORAL.SYG PO SCH ×4 (05:56→23:36)
[2022-11-26] MEDS: INSULIN LISPRO 100 UNITS/ML SQ PRN (05:56)
[2022-11-26 06:17] LABS: GLUCOMETER DEV NAME(LOC) 5S.2C
[2022-11-26 07:25] LABS: EOSINOPHILS % (AUTO) 0.4 % (1.0-6.0); HEMATOCRIT 27.7 % (41-53); HEMOGLOBIN 8.8 g/dL (13.5-17.5); LYMPHOCYTES # (AUTO) 0.2 K/uL (1.0-4.8); LYMPHOCYTES % (AUTO) 1.2 % (22.0-44.0); MEAN CORPUSCULAR HGB CONC 31.6 G/dL (31.0-37.0); MEAN CORPUSCULAR VOLUME 111 fL (80-100); MONOCYTES # (AUTO) 0.9 K/uL (0.1-1.0); MONOCYTES % (AUTO) 4.8 % (2.0-9.0); NEUTROPHILS # (AUTO) 16.6 K/uL (1.8-7.7); PLATELET COUNT (AUTO) 139 K/uL (150-450); RED CELL DISTRIBUTION WIDTH 18.8 % (11.5-14.5)
[2022-11-26 07:28] LABS: NEUTROPHILS % (AUTO) 93.6 % (40.0-70.0)
[2022-11-26] MEDS: DOCUSATE SODIUM 100 MG CAPSULE PO SCH ×2 (07:52→20:24)
[2022-11-26] MEDS: METOPROLOL TARTRATE 25 MG TABLET PO SCH ×2 (09:00→20:22)
[2022-11-26] MEDS: PANTOPRAZOLE SODIUM 40 MG/VIAL IVP SCH (09:23)
[2022-11-26] MEDS: IPRATROPIUM BROMIDE 0.5 MG/2.5 ML NEB SOLUTION NEB PRN (09:49)
[2022-11-26] MEDS: ALBUTEROL SULFATE 2.5 MG/0.5 ML NEB SOLUTION NEB PRN (09:49)
[2022-11-26] MEDS: EPOETIN ALFA 10,000 UNITS/ML VIAL SQ SCH (10:44)
[2022-11-26] MEDS: MIDODRINE HCL 5 MG TABLET PO SCH ×2 (14:01→20:21)
[2022-11-26 18:41] LABS: GLUCOMETER DEV NAME(LOC) 5S.2C
[2022-11-26 18:41] LABS: GLUCOMETER DEV NAME(LOC) 5S.2C
[2022-11-26] MEDS: ETHYL ALCOHOL 62% ANTISEPTIC NASAL SANITIZER 0.6 ML AMPUL NASAL SCH (20:23)
[2022-11-26] MEDS ORDERED: SODIUM CHLORIDE 0.9% 1,000 ML ONE (23:27)
[2022-11-26 23:46] LABS: GLUCOMETER DEV NAME(LOC) 5S.2C
[2022-11-27] VITALS (16 sets, daily range): BP systolic 91–124; BP diastolic 45–67; PULSE 60–95; RESP 18–22; TEMP 97.5–97.8
[2022-11-27] MEDS: PIPERACILLIN SODIUM/TAZOBACTAM 2.25 GM in DEXTROSE 5%-WATER 50 ML IV SCH ×3 (03:29→21:36)
[2022-11-27] MEDS: VANCOMYCIN HCL 125 MG/2.5 ML SOLUTION ORAL.SYG PO SCH ×3 (05:46→21:36)
[2022-11-27] MEDS: INSULIN LISPRO 100 UNITS/ML SQ PRN (06:08)
[2022-11-27 07:10] LABS: GLUCOMETER DEV NAME(LOC) 5S.2C
[2022-11-27] MEDS: METOPROLOL TARTRATE 25 MG TABLET PO SCH ×2 (09:00→21:00)
[2022-11-27] MEDS: PANTOPRAZOLE SODIUM 40 MG/VIAL IVP SCH (09:45)
[2022-11-27] MEDS: ETHYL ALCOHOL 62% ANTISEPTIC NASAL SANITIZER 0.6 ML AMPUL NASAL SCH ×2 (09:45→22:37)
[2022-11-27] MEDS: DOCUSATE SODIUM 100 MG CAPSULE PO SCH ×2 (09:45→21:00)
[2022-11-27] MEDS: MIDODRINE HCL 5 MG TABLET PO SCH (09:45)
[2022-11-27 11:26] LABS: GLUCOMETER DEV NAME(LOC) 5S.1B
[2022-11-27] MEDS ORDERED: HEPARIN SODIUM,PORCINE 1,000 UNITS/ML VIAL IVP ONE (12:00)
[2022-11-27] MEDS ORDERED: IOHEXOL 350 MG/ML 75 ML VIAL ONE (16:25)
[2022-11-27] MEDS ORDERED: SODIUM CHLORIDE 0.9% 100 ML ONE (16:25)
[2022-11-27] MEDS ORDERED: VANCOMYCIN HCL 750 MG in DEXTROSE 5%-WATER 250 ML IV ONE (18:00)
[2022-11-27] MEDS ORDERED: HEPARIN SODIUM,PORCINE 1,000 UNITS/ML VIAL IVCATH ONE ×2 (20:15)
[2022-11-27] MEDS ORDERED: SODIUM CHLORIDE 0.9% 250 ML IV ONE (21:33)
[2022-11-27 22:41] LABS: GLUCOMETER DEV NAME(LOC) 5S.1B
[2022-11-28] VITALS (10 sets, daily range): BP systolic 95–116; BP diastolic 49–62; PULSE 41–84; RESP 18–23; TEMP 97.5–97.7; O2SAT 95–100
[2022-11-28] MEDS: VANCOMYCIN HCL 125 MG/2.5 ML SOLUTION ORAL.SYG PO SCH ×4 (01:55→18:07)
[2022-11-28 02:46] LABS: GLUCOMETER DEV NAME(LOC) 5S.1B
[2022-11-28] MEDS: PIPERACILLIN SODIUM/TAZOBACTAM 2.25 GM in DEXTROSE 5%-WATER 50 ML IV SCH ×3 (05:58→21:30)
[2022-11-28 06:26] LABS: GLUCOMETER DEV NAME(LOC) 5S.1B
[2022-11-28 07:01] LABS: BASOPHILS % (AUTO) 0.2 % (0.0-2.0); EOSINOPHILS % (AUTO) 1.4 % (1.0-6.0); HEMATOCRIT 25.6 % (41-53); LYMPHOCYTES # (AUTO) 0.1 K/uL (1.0-4.8); LYMPHOCYTES % (AUTO) 0.9 % (22.0-44.0); MEAN CORPUSCULAR HEMOGLOBIN 34.7 pg (26.0-34.0); MEAN CORPUSCULAR HGB CONC 31.4 G/dL (31.0-37.0); MEAN CORPUSCULAR VOLUME 111 fL (80-100); MONOCYTES # (AUTO) 0.6 K/uL (0.1-1.0); MONOCYTES % (AUTO) 3.9 % (2.0-9.0); NEUTROPHILS # (AUTO) 14.1 K/uL (1.8-7.7); PLATELET COUNT (AUTO) 114 K/uL (150-450); RED BLOOD CELL COUNT(AUTO) 2.32 MIL/uL (4.50-5.90); RED CELL DISTRIBUTION WIDTH 19.6 % (11.5-14.5)
[2022-11-28 07:04] LABS: NEUTROPHILS % (AUTO) 93.6 % (40.0-70.0)
[2022-11-28] MEDS: PANTOPRAZOLE SODIUM 40 MG/VIAL IVP SCH (09:23)
[2022-11-28] MEDS: EPOETIN ALFA 10,000 UNITS/ML VIAL SQ SCH (09:24)
[2022-11-28] MEDS: DOCUSATE SODIUM 100 MG CAPSULE PO SCH ×2 (09:24→20:05)
[2022-11-28] MEDS: METOPROLOL TARTRATE 25 MG TABLET PO SCH ×2 (09:24→20:02)
[2022-11-28] MEDS: ETHYL ALCOHOL 62% ANTISEPTIC NASAL SANITIZER 0.6 ML AMPUL NASAL SCH ×2 (09:24→21:56)
[2022-11-28] MEDS: INSULIN LISPRO 100 UNITS/ML SQ PRN ×2 (13:02→21:37)
[2022-11-28 23:16] LABS: GLUCOMETER DEV NAME(LOC) 5N.2C
[2022-11-28 23:16] LABS: GLUCOMETER DEV NAME(LOC) 5S.1B
[2022-11-29] VITALS (16 sets, daily range): BP systolic 98–154; BP diastolic 46–72; PULSE 55–91; RESP 18–24; TEMP 96.8–97.9; O2SAT 93–99
[2022-11-29] MEDS: VANCOMYCIN HCL 125 MG/2.5 ML SOLUTION ORAL.SYG PO SCH ×4 (02:04→18:46)
[2022-11-29] MEDS: PIPERACILLIN SODIUM/TAZOBACTAM 2.25 GM in DEXTROSE 5%-WATER 50 ML IV SCH ×3 (04:37→22:00)
[2022-11-29] MEDS: INSULIN LISPRO 100 UNITS/ML SQ PRN (06:30)
[2022-11-29 06:56] LABS: GLUCOMETER DEV NAME(LOC) 5S.2C
[2022-11-29 06:56] LABS: GLUCOMETER DEV NAME(LOC) 5S.2C
[2022-11-29 06:56] LABS: GLUCOMETER DEV NAME(LOC) 5S.2C
[2022-11-29] MEDS: DOCUSATE SODIUM 100 MG CAPSULE PO SCH ×2 (09:00→21:00)
[2022-11-29] MEDS: METOPROLOL TARTRATE 25 MG TABLET PO SCH ×3 (09:43→22:01)
[2022-11-29] MEDS: ETHYL ALCOHOL 62% ANTISEPTIC NASAL SANITIZER 0.6 ML AMPUL NASAL SCH ×2 (09:43→22:01)
[2022-11-29] MEDS: PANTOPRAZOLE SODIUM 40 MG/VIAL IVP SCH (09:43)
[2022-11-29] MEDS: MIDODRINE HCL 5 MG TABLET PO SCH (09:43)
[2022-11-29] MEDS ORDERED: HEPARIN SODIUM,PORCINE 1,000 UNITS/ML VIAL IVP ONE (12:00)
[2022-11-29] MEDS ORDERED: IOHEXOL 350 MG/ML 100 ML VIAL ONE (14:32)
[2022-11-29] MEDS ORDERED: SODIUM CHLORIDE 0.9% 100 ML ONE (14:32)
[2022-11-29] MEDS ORDERED: SODIUM CHLORIDE 0.9% 1,000 ML ONE (18:12)
[2022-11-29] MEDS ORDERED: SODIUM CHLORIDE 0.9% IRRIG BTL 1,000 ML IRRIG ONE (23:34)
[2022-11-30] VITALS (7 sets, daily range): BP systolic 94–144; BP diastolic 54–106; PULSE 69–87; RESP 18–20; TEMP 96.7–97.6; O2SAT 95
[2022-11-30 01:26] LABS: GLUCOMETER DEV NAME(LOC) 5S.2C
[2022-11-30 01:26] LABS: GLUCOMETER DEV NAME(LOC) 5S.2C
[2022-11-30 01:26] LABS: GLUCOMETER DEV NAME(LOC) 5S.2C
[2022-11-30] MEDS: PIPERACILLIN SODIUM/TAZOBACTAM 2.25 GM in DEXTROSE 5%-WATER 50 ML IV SCH ×3 (04:29→21:10)
[2022-11-30] MEDS: VANCOMYCIN HCL 125 MG/2.5 ML SOLUTION ORAL.SYG PO SCH ×4 (06:00→18:30)
[2022-11-30 06:41] LABS: GLUCOMETER DEV NAME(LOC) 5S.2C
[2022-11-30 08:18] LABS: BASOPHILS % (AUTO) 0.2 % (0.0-2.0); EOSINOPHILS % (AUTO) 1.7 % (1.0-6.0); HEMATOCRIT 27.8 % (41-53); HEMOGLOBIN 8.8 g/dL (13.5-17.5); LYMPHOCYTES # (AUTO) 0.2 K/uL (1.0-4.8); LYMPHOCYTES % (AUTO) 1.5 % (22.0-44.0); MEAN CORPUSCULAR HEMOGLOBIN 35.1 pg (26.0-34.0); MEAN CORPUSCULAR HGB CONC 31.8 G/dL (31.0-37.0); MEAN CORPUSCULAR VOLUME 110 fL (80-100); MONOCYTES # (AUTO) 0.5 K/uL (0.1-1.0); MONOCYTES % (AUTO) 4.1 % (2.0-9.0); NEUTROPHILS # (AUTO) 10.5 K/uL (1.8-7.7); PLATELET COUNT (AUTO) 123 K/uL (150-450); RED BLOOD CELL COUNT(AUTO) 2.52 MIL/uL (4.50-5.90); RED CELL DISTRIBUTION WIDTH 21.2 % (11.5-14.5)
[2022-11-30 08:22] LABS: NEUTROPHILS % (AUTO) 92.5 % (40.0-70.0)
[2022-11-30] MEDS: DOCUSATE SODIUM 100 MG CAPSULE PO SCH ×2 (09:00→20:05)
[2022-11-30] MEDS: PANTOPRAZOLE SODIUM 40 MG/VIAL IVP SCH (09:23)
[2022-11-30] MEDS: ETHYL ALCOHOL 62% ANTISEPTIC NASAL SANITIZER 0.6 ML AMPUL NASAL SCH ×2 (09:23→21:10)
[2022-11-30] MEDS: MORPHINE SULFATE 2 MG/ML SYRINGE IVP PRN (11:17)
[2022-11-30] MEDS ORDERED: VANCOMYCIN HCL 750 MG in DEXTROSE 5%-WATER 250 ML IV ONE (13:00)
[2022-11-30 20:07] LABS: GLUCOMETER DEV NAME(LOC) 5S.2C
[2022-11-30 20:07] LABS: GLUCOMETER DEV NAME(LOC) 5S.2C
[2022-11-30] MEDS: METOPROLOL TARTRATE 25 MG TABLET PO SCH (21:00)
[2022-12-01] VITALS (7 sets, daily range): BP systolic 85–152; BP diastolic 53–97; PULSE 69–143; RESP 18–20; TEMP 96.7–97.4; O2SAT 97
[2022-12-01] MEDS: VANCOMYCIN HCL 125 MG/2.5 ML SOLUTION ORAL.SYG PO SCH ×5 (00:15→23:50)
[2022-12-01] MEDS: PIPERACILLIN SODIUM/TAZOBACTAM 2.25 GM in DEXTROSE 5%-WATER 50 ML IV SCH ×3 (04:27→21:25)
[2022-12-01] MEDS: MORPHINE SULFATE 2 MG/ML SYRINGE IVP PRN (05:01)
[2022-12-01] MEDS: INSULIN LISPRO 100 UNITS/ML SQ PRN ×2 (05:09→18:16)
[2022-12-01] MEDS: METOPROLOL TARTRATE 25 MG TABLET PO SCH ×2 (09:00→20:57)
[2022-12-01] MEDS: DOCUSATE SODIUM 100 MG CAPSULE PO SCH ×2 (09:00→20:57)
[2022-12-01 09:01] LABS: GLUCOMETER DEV NAME(LOC) 5S.2C
[2022-12-01 09:01] LABS: GLUCOMETER DEV NAME(LOC) 5S.2C
[2022-12-01] MEDS: PANTOPRAZOLE SODIUM 40 MG/VIAL IVP SCH (09:06)
[2022-12-01] MEDS: ETHYL ALCOHOL 62% ANTISEPTIC NASAL SANITIZER 0.6 ML AMPUL NASAL SCH ×2 (09:06→21:00)
[2022-12-01] MEDS: EPOETIN ALFA 10,000 UNITS/ML VIAL SQ SCH (09:07)
[2022-12-01 13:06] LABS: GLUCOMETER DEV NAME(LOC) 5S.2C
[2022-12-01 20:21] LABS: GLUCOMETER DEV NAME(LOC) 4E.2
[2022-12-02] VITALS (10 sets, daily range): BP systolic 83–136; BP diastolic 50–68; PULSE 50–103; RESP 18–22; TEMP 97.3–97.5; O2SAT 93
[2022-12-02 03:11] LABS: GLUCOMETER DEV NAME(LOC) 6S.2
[2022-12-02] MEDS: PIPERACILLIN SODIUM/TAZOBACTAM 2.25 GM in DEXTROSE 5%-WATER 50 ML IV SCH ×3 (04:29→22:12)
[2022-12-02] MEDS: VANCOMYCIN HCL 125 MG/2.5 ML SOLUTION ORAL.SYG PO SCH ×4 (06:34→23:51)
[2022-12-02] MEDS: METOPROLOL TARTRATE 25 MG TABLET PO SCH ×3 (09:00→22:13)
[2022-12-02] MEDS: PANTOPRAZOLE SODIUM 40 MG/VIAL IVP SCH (09:05)
[2022-12-02] MEDS: MIDODRINE HCL 5 MG TABLET PO SCH (09:11)
[2022-12-02] MEDS: DOCUSATE SODIUM 100 MG CAPSULE PO SCH ×3 (09:11→22:13)
[2022-12-02] MEDS: ETHYL ALCOHOL 62% ANTISEPTIC NASAL SANITIZER 0.6 ML AMPUL NASAL SCH ×2 (09:12→22:13)
[2022-12-02 09:31] LABS: GLUCOMETER DEV NAME(LOC) 6S.2
[2022-12-02 20:22] LABS: GLUCOMETER DEV NAME(LOC) 4E.2
[2022-12-02 20:22] LABS: GLUCOMETER DEV NAME(LOC) 4E.2
[2022-12-03] MEDS: PIPERACILLIN SODIUM/TAZOBACTAM 2.25 GM in DEXTROSE 5%-WATER 50 ML IV SCH ×3 (04:21→20:32)
[2022-12-03 05:00] VITALS: BP 89/46
[2022-12-03] MEDS: VANCOMYCIN HCL 125 MG/2.5 ML SOLUTION ORAL.SYG PO SCH ×4 (05:51→23:29)
[2022-12-03] MEDS: ACETAMINOPHEN 325 MG TABLET PO PRN (05:52)
[2022-12-03] MEDS: INSULIN LISPRO 100 UNITS/ML SQ PRN (05:53)
[2022-12-03 06:56] LABS: GLUCOMETER DEV NAME(LOC) 4E.2
[2022-12-03 06:56] LABS: GLUCOMETER DEV NAME(LOC) 4E.2
[2022-12-03 07:12] VITALS: BP 126/65; PULSE 62; RESP 20; TEMP 98.3
[2022-12-03 08:05] VITALS: BP 101/64; PULSE 79; RESP 20; TEMP 98.2
[2022-12-03] MEDS: PANTOPRAZOLE SODIUM 40 MG/VIAL IVP SCH (08:19)
[2022-12-03] MEDS: METOPROLOL TARTRATE 25 MG TABLET PO SCH ×2 (08:19→20:11)
[2022-12-03] MEDS: EPOETIN ALFA 10,000 UNITS/ML VIAL SQ SCH (08:21)
[2022-12-03] MEDS: ETHYL ALCOHOL 62% ANTISEPTIC NASAL SANITIZER 0.6 ML AMPUL NASAL SCH ×2 (08:21→20:32)
[2022-12-03] MEDS: DOCUSATE SODIUM 100 MG CAPSULE PO SCH (08:22)
[2022-12-03 15:01] LABS: GLUCOMETER DEV NAME(LOC) 6S.2
[2022-12-03 16:00] VITALS: PULSE 87; RESP 20; O2SAT 95
[2022-12-03 16:28] VITALS: BP 109/57; PULSE 75; RESP 20; TEMP 97.9
[2022-12-03 19:40] VITALS: BP 96/58; PULSE 76; RESP 19; TEMP 97.8
[2022-12-03] MEDS: DOCUSATE SODIUM 100 MG/10 ML LIQUID UDCUP NG SCH (20:12)
[2022-12-04] VITALS (13 sets, daily range): BP systolic 87–124; BP diastolic 44–105; PULSE 65–87; RESP 16–20; TEMP 97–98.1
[2022-12-04 00:26] LABS: GLUCOMETER DEV NAME(LOC) 6N.1
[2022-12-04 00:26] LABS: GLUCOMETER DEV NAME(LOC) 6N.2B
[2022-12-04] MEDS: PIPERACILLIN SODIUM/TAZOBACTAM 2.25 GM in DEXTROSE 5%-WATER 50 ML IV SCH (05:09)
[2022-12-04] MEDS: VANCOMYCIN HCL 125 MG/2.5 ML SOLUTION ORAL.SYG PO SCH (05:09)
[2022-12-04 05:51] LABS: GLUCOMETER DEV NAME(LOC) 6S.2
[2022-12-04] MEDS: PANTOPRAZOLE SODIUM 40 MG/VIAL IVP SCH (08:45)
[2022-12-04] MEDS: MIDODRINE HCL 5 MG TABLET PO SCH (08:45)
[2022-12-04] MEDS: METOPROLOL TARTRATE 25 MG TABLET PO SCH ×2 (08:45→20:19)
[2022-12-04] MEDS: ETHYL ALCOHOL 62% ANTISEPTIC NASAL SANITIZER 0.6 ML AMPUL NASAL SCH ×2 (08:45→20:19)
[2022-12-04] MEDS: DOCUSATE SODIUM 100 MG/10 ML LIQUID UDCUP NG SCH ×2 (08:47→20:19)
[2022-12-04] MEDS ORDERED: SODIUM CHLORIDE 0.9% 1,000 ML ONE (09:05)
[2022-12-04] MEDS ORDERED: HEPARIN SODIUM,PORCINE 1,000 UNITS/ML VIAL IVP ONE (12:00)
[2022-12-04 13:31] LABS: GLUCOMETER DEV NAME(LOC) 6S.2
[2022-12-05 04:25] VITALS: BP 157/113; PULSE 84; RESP 18; TEMP 98
[2022-12-05] MEDS: INSULIN LISPRO 100 UNITS/ML SQ PRN (05:50)
[2022-12-05 07:12] LABS: CALCIUM, TOTAL 9.5 mg/dL (8.8-10.5); CREATININE 2.44 mg/dL (0.60-1.30); MAGNESIUM 2.2 mg/dL (1.80-2.40); PHOSPHORUS 3.3 mg/dL (2.5-4.9); POTASSIUM 3.6 mmol/L (3.5-5.1)
[2022-12-05 07:28] VITALS: BP 90/31; PULSE 95; RESP 17; TEMP 97.5
[2022-12-05] MEDS: ETHYL ALCOHOL 62% ANTISEPTIC NASAL SANITIZER 0.6 ML AMPUL NASAL SCH ×2 (08:46→21:19)
[2022-12-05] MEDS: PANTOPRAZOLE SODIUM 40 MG/VIAL IVP SCH (08:46)
[2022-12-05] MEDS: METOPROLOL TARTRATE 25 MG TABLET PO SCH ×2 (08:49→21:20)
[2022-12-05] MEDS: EPOETIN ALFA 10,000 UNITS/ML VIAL SQ SCH (08:50)
[2022-12-05] MEDS: DOCUSATE SODIUM 100 MG/10 ML LIQUID UDCUP NG SCH ×2 (09:00→21:00)
[2022-12-05] MEDS ORDERED: LORazepam 2 MG/ML VIAL IVP ONE (13:15)
[2022-12-05 13:30] VITALS: PULSE 87; RESP 20; O2SAT 97
[2022-12-05 19:17] VITALS: BP 152/69; PULSE 85; RESP 18; TEMP 98.1
[2022-12-05 20:46] LABS: GLUCOMETER DEV NAME(LOC) 4E.2
[2022-12-05 20:46] LABS: GLUCOMETER DEV NAME(LOC) 6N.1
[2022-12-05 20:46] LABS: GLUCOMETER DEV NAME(LOC) 6N.1
[2022-12-05 20:47] LABS: GLUCOMETER DEV NAME(LOC) 6N.2B
[2022-12-05 20:47] LABS: GLUCOMETER DEV NAME(LOC) 6N.2B
[2022-12-06] VITALS (15 sets, daily range): BP systolic 63–115; BP diastolic 28–72; PULSE 63–88; RESP 16–18; TEMP 90.6–99.1
[2022-12-06 00:06] LABS: GLUCOMETER DEV NAME(LOC) 6N.1
[2022-12-06] MEDS: PANTOPRAZOLE SODIUM 40 MG/VIAL IVP SCH ×2 (06:41→21:22)
[2022-12-06] MEDS: MIDODRINE HCL 5 MG TABLET PO SCH (06:41)
[2022-12-06 07:21] LABS: GLUCOMETER DEV NAME(LOC) 6N.1
[2022-12-06 07:30] LABS: BASOPHILS % (AUTO) 0.1 % (0.0-2.0); EOSINOPHILS % (AUTO) 0.5 % (1.0-6.0); HEMATOCRIT 21.7 % (41-53); HEMOGLOBIN 7.1 g/dL (13.5-17.5); LYMPHOCYTES # (AUTO) 0.4 K/uL (1.0-4.8); LYMPHOCYTES % (AUTO) 3.2 % (22.0-44.0); MEAN CORPUSCULAR HEMOGLOBIN 35.6 pg (26.0-34.0); MEAN CORPUSCULAR HGB CONC 32.7 G/dL (31.0-37.0); MEAN CORPUSCULAR VOLUME 109 fL (80-100); MONOCYTES # (AUTO) 0.6 K/uL (0.1-1.0); MONOCYTES % (AUTO) 4.4 % (2.0-9.0); NEUTROPHILS # (AUTO) 12.6 K/uL (1.8-7.7); PLATELET COUNT (AUTO) 190 K/uL (150-450); RED BLOOD CELL COUNT(AUTO) 1.99 MIL/uL (4.50-5.90); RED CELL DISTRIBUTION WIDTH 20.7 % (11.5-14.5)
[2022-12-06 07:37] LABS: NEUTROPHILS % (AUTO) 91.8 % (40.0-70.0)
[2022-12-06] MEDS: ETHYL ALCOHOL 62% ANTISEPTIC NASAL SANITIZER 0.6 ML AMPUL NASAL SCH ×2 (08:23→21:22)
[2022-12-06] MEDS: DOCUSATE SODIUM 100 MG/10 ML LIQUID UDCUP NG SCH ×2 (08:23→21:00)
[2022-12-06] MEDS: METOPROLOL TARTRATE 25 MG TABLET PO SCH ×2 (08:24→21:00)
[2022-12-06] MEDS ORDERED: SODIUM CHLORIDE 0.9% 250 ML IV ONE (10:25)
[2022-12-06 12:41] LABS: GLUCOMETER DEV NAME(LOC) 6N.1
[2022-12-06] MEDS: ACETAMINOPHEN 325 MG TABLET PO PRN (19:04)
[2022-12-06] MEDS: INSULIN LISPRO 100 UNITS/ML SQ PRN (21:48)
[2022-12-07 04:20] VITALS: BP 106/81; PULSE 90; RESP 16; TEMP 97.6
[2022-12-07] MEDS: ALBUTEROL SULFATE 2.5 MG/0.5 ML NEB SOLUTION NEB PRN (05:04)
[2022-12-07] MEDS: IPRATROPIUM BROMIDE 0.5 MG/2.5 ML NEB SOLUTION NEB PRN (05:04)
[2022-12-07 05:41] LABS: GLUCOMETER DEV NAME(LOC) 6N.2B
[2022-12-07 05:41] LABS: GLUCOMETER DEV NAME(LOC) 6N.2B
[2022-12-07 05:56] VITALS: PULSE 100; RESP 26; O2SAT 97
[2022-12-07 05:59] VITALS: PULSE 100; RESP 26; O2SAT 97
[2022-12-07 06:55] LABS: GLUCOMETER DEV NAME(LOC) 6N.2B
[2022-12-07] MEDS ORDERED: MIDODRINE HCL 5 MG TABLET NG ONE (07:30)
[2022-12-07 08:24] LABS: BASOPHILS % (AUTO) 0.2 % (0.0-2.0); EOSINOPHILS % (AUTO) 0.4 % (1.0-6.0); HEMOGLOBIN 8.7 g/dL (13.5-17.5); LYMPHOCYTES # (AUTO) 0.4 K/uL (1.0-4.8); LYMPHOCYTES % (AUTO) 2.9 % (22.0-44.0); MEAN CORPUSCULAR HGB CONC 32.4 G/dL (31.0-37.0); MEAN CORPUSCULAR VOLUME 105 fL (80-100); MONOCYTES # (AUTO) 0.6 K/uL (0.1-1.0); MONOCYTES % (AUTO) 4.4 % (2.0-9.0); NEUTROPHILS # (AUTO) 13.5 K/uL (1.8-7.7); PLATELET COUNT (AUTO) 192 K/uL (150-450); RED BLOOD CELL COUNT(AUTO) 2.57 MIL/uL (4.50-5.90); RED CELL DISTRIBUTION WIDTH 20.5 % (11.5-14.5)
[2022-12-07 08:25] LABS: NEUTROPHILS % (AUTO) 92.1 % (40.0-70.0)
[2022-12-07] MEDS: DOCUSATE SODIUM 100 MG/10 ML LIQUID UDCUP NG SCH ×2 (09:00→21:51)
[2022-12-07] MEDS: METOPROLOL TARTRATE 25 MG TABLET PO SCH ×2 (09:00→21:00)
[2022-12-07] MEDS: ETHYL ALCOHOL 62% ANTISEPTIC NASAL SANITIZER 0.6 ML AMPUL NASAL SCH ×2 (09:02→21:42)
[2022-12-07] MEDS: PANTOPRAZOLE SODIUM 40 MG/VIAL IVP SCH ×2 (09:03→21:42)
[2022-12-07] MEDS ORDERED: SODIUM CHLORIDE 0.9% 250 ML IV ONE (09:45)
[2022-12-07] MEDS ORDERED: PIPERACILLIN SODIUM/TAZOBACTAM 0.75 GM in DEXTROSE 5%-WATER 50 ML IV PRN (10:00)
[2022-12-07] MEDS ORDERED: VANCOMYCIN 1GM/WATER(PEG/NADA) 200 ML IV PRN (10:00)
[2022-12-07] MEDS ORDERED: VANCOMYCIN HCL 750 MG in DEXTROSE 5%-WATER 250 ML IV ONE (10:15)
[2022-12-07] MEDS: PIPERACILLIN SODIUM/TAZOBACTAM 2.25 GM in DEXTROSE 5%-WATER 50 ML IV SCH ×2 (10:44→21:42)
[2022-12-07] MEDS: INSULIN LISPRO 100 UNITS/ML SQ PRN (12:00)
[2022-12-07 12:42] LABS: GLUCOMETER DEV NAME(LOC) 6S.2
[2022-12-07 21:53] VITALS: BP 88/44; PULSE 80; RESP 16; TEMP 97.5
[2022-12-08 05:56] VITALS: BP 115/67; PULSE 62; RESP 18; TEMP 97.8
[2022-12-08 05:56] LABS: GLUCOMETER DEV NAME(LOC) 4E.2
[2022-12-08] MEDS: INSULIN LISPRO 100 UNITS/ML SQ PRN ×2 (06:33→23:55)
[2022-12-08 07:36] VITALS: BP 92/51; PULSE 61; RESP 18; TEMP 98.7
[2022-12-08 07:53] LABS: BASOPHILS % (AUTO) 0.2 % (0.0-2.0); EOSINOPHILS % (AUTO) 0.4 % (1.0-6.0); HEMATOCRIT 27.7 % (41-53); LYMPHOCYTES # (AUTO) 0.4 K/uL (1.0-4.8); LYMPHOCYTES % (AUTO) 3.4 % (22.0-44.0); MEAN CORPUSCULAR HEMOGLOBIN 34.4 pg (26.0-34.0); MEAN CORPUSCULAR HGB CONC 32.7 G/dL (31.0-37.0); MEAN CORPUSCULAR VOLUME 105 fL (80-100); MONOCYTES # (AUTO) 0.6 K/uL (0.1-1.0); MONOCYTES % (AUTO) 4.6 % (2.0-9.0); NEUTROPHILS # (AUTO) 11.8 K/uL (1.8-7.7); PLATELET COUNT (AUTO) 193 K/uL (150-450); RED BLOOD CELL COUNT(AUTO) 2.63 MIL/uL (4.50-5.90); RED CELL DISTRIBUTION WIDTH 19.8 % (11.5-14.5)
[2022-12-08 07:57] LABS: NEUTROPHILS % (AUTO) 91.4 % (40.0-70.0)
[2022-12-08 08:10] LABS: CALCIUM, TOTAL 10.2 mg/dL (8.8-10.5); CREATININE 4.62 mg/dL (0.60-1.30); MAGNESIUM 2.7 mg/dL (1.80-2.40); PHOSPHORUS 5.8 mg/dL (2.5-4.9); POTASSIUM 4.7 mmol/L (3.5-5.1)
[2022-12-08] MEDS: EPOETIN ALFA 10,000 UNITS/ML VIAL SQ SCH (08:59)
[2022-12-08] MEDS: METOPROLOL TARTRATE 25 MG TABLET PO SCH ×2 (08:59→21:00)
[2022-12-08] MEDS: DOCUSATE SODIUM 100 MG/10 ML LIQUID UDCUP NG SCH ×2 (08:59→21:00)
[2022-12-08] MEDS: ETHYL ALCOHOL 62% ANTISEPTIC NASAL SANITIZER 0.6 ML AMPUL NASAL SCH ×2 (08:59→20:30)
[2022-12-08] MEDS: PANTOPRAZOLE SODIUM 40 MG/VIAL IVP SCH ×2 (08:59→20:30)
[2022-12-08] MEDS: PIPERACILLIN SODIUM/TAZOBACTAM 2.25 GM in DEXTROSE 5%-WATER 50 ML IV SCH ×2 (09:04→22:03)
[2022-12-08 11:56] LABS: GLUCOMETER DEV NAME(LOC) 6N.1
[2022-12-08 11:57] LABS: GLUCOMETER DEV NAME(LOC) 6N.1
[2022-12-08 14:45] VITALS: BP 135/76; PULSE 67; RESP 18; TEMP 97.8
[2022-12-08 15:31] LABS: GLUCOMETER DEV NAME(LOC) 6S.2
[2022-12-08] MEDS ORDERED: HYDROCORTISONE 25 MG RECTAL SUPPOSITORY PR PRN (18:15)
[2022-12-08 20:42] VITALS: BP 69/37; PULSE 85; RESP 18; TEMP 97.4
[2022-12-08 21:06] LABS: GLUCOMETER DEV NAME(LOC) 6N.1
[2022-12-08] MEDS ORDERED: SODIUM CHLORIDE 0.9% 250 ML IV ONE (23:30)
[2022-12-09] MEDS ORDERED: SODIUM CHLORIDE 0.9% 250 ML IV ONE
[2022-12-09 00:30] VITALS: BP 101/93; RESP 20
[2022-12-09] MEDS ORDERED: SODIUM CHLORIDE 0.9% 1,000 ML IV ONE (01:00)
[2022-12-09 05:15] VITALS: BP 95/74; PULSE 97; RESP 20; TEMP 97.7
[2022-12-09 06:11] LABS: GLUCOMETER DEV NAME(LOC) 4E.2
[2022-12-09] MEDS: PANTOPRAZOLE SODIUM 40 MG/VIAL IVP SCH ×2 (08:42→22:29)
[2022-12-09] MEDS: MIDODRINE HCL 5 MG TABLET PO SCH (08:43)
[2022-12-09] MEDS: DOCUSATE SODIUM 100 MG/10 ML LIQUID UDCUP NG SCH ×2 (08:44→21:00)
[2022-12-09] MEDS: METOPROLOL TARTRATE 25 MG TABLET PO SCH ×2 (08:44→21:00)
[2022-12-09] MEDS: ETHYL ALCOHOL 62% ANTISEPTIC NASAL SANITIZER 0.6 ML AMPUL NASAL SCH ×2 (08:47→22:29)
[2022-12-09 09:21] LABS: GLUCOMETER DEV NAME(LOC) 6S.2
[2022-12-09] MEDS: PIPERACILLIN SODIUM/TAZOBACTAM 2.25 GM in DEXTROSE 5%-WATER 50 ML IV SCH ×2 (11:03→22:29)
[2022-12-09] MEDS ORDERED: HEPARIN SODIUM,PORCINE 1,000 UNITS/ML VIAL IVP ONE (12:00)
[2022-12-09] MEDS ORDERED: ALBUMIN HUMAN 25%-12.5GM/50ML IV BOTTLE IV ONE (12:00)
[2022-12-09 15:30] VITALS: BP 80/47; PULSE 70; RESP 18
[2022-12-09 16:00] VITALS: BP 78/45; PULSE 70; RESP 16
[2022-12-09 20:30] VITALS: BP 128/54; PULSE 82; RESP 18; TEMP 97.9
[2022-12-10 05:10] VITALS: BP 98/69; PULSE 76; RESP 18; TEMP 97.5
[2022-12-10 07:02] LABS: GLUCOMETER DEV NAME(LOC) 6S.2
[2022-12-10 07:02] LABS: GLUCOMETER DEV NAME(LOC) 6S.2
[2022-12-10 07:02] LABS: GLUCOMETER DEV NAME(LOC) 6S.2
[2022-12-10 07:02] LABS: GLUCOMETER DEV NAME(LOC) 6N.1
[2022-12-10] MEDS: METOPROLOL TARTRATE 25 MG TABLET PO SCH ×2 (08:41→21:00)
[2022-12-10] MEDS: DOCUSATE SODIUM 100 MG/10 ML LIQUID UDCUP NG SCH ×2 (08:41→21:00)
[2022-12-10] MEDS: PANTOPRAZOLE SODIUM 40 MG/VIAL IVP SCH ×2 (08:42→21:27)
[2022-12-10] MEDS: ETHYL ALCOHOL 62% ANTISEPTIC NASAL SANITIZER 0.6 ML AMPUL NASAL SCH ×2 (08:42→21:27)
[2022-12-10] MEDS: EPOETIN ALFA 10,000 UNITS/ML VIAL SQ SCH (08:43)
[2022-12-10] MEDS: PIPERACILLIN SODIUM/TAZOBACTAM 2.25 GM in DEXTROSE 5%-WATER 50 ML IV SCH ×2 (10:46→21:28)
[2022-12-10 11:34] VITALS: BP 124/68; PULSE 70; RESP 18; TEMP 95.2
[2022-12-10 16:00] VITALS: BP 99/56; PULSE 55; RESP 18; TEMP 94.5
[2022-12-10 20:40] VITALS: BP 80/50; PULSE 74; RESP 19; TEMP 96.3
[2022-12-10 21:16] LABS: GLUCOMETER DEV NAME(LOC) 6N.2B
[2022-12-10] MEDS ORDERED: SODIUM CHLORIDE 0.9% 500 ML IV ONE (21:35)
[2022-12-11] VITALS (9 sets, daily range): BP systolic 71–102; BP diastolic 38–55; PULSE 71–90; RESP 18–22; TEMP 93.7–99.4
[2022-12-11] MEDS: ACETAMINOPHEN 325 MG TABLET PO PRN (04:46)
[2022-12-11] MEDS: INSULIN LISPRO 100 UNITS/ML SQ PRN (05:09)
[2022-12-11 06:01] LABS: GLUCOMETER DEV NAME(LOC) 4E.2
[2022-12-11 06:02] LABS: GLUCOMETER DEV NAME(LOC) 4E.2
[2022-12-11 06:02] LABS: GLUCOMETER DEV NAME(LOC) 4E.2
[2022-12-11] MEDS: METOPROLOL TARTRATE 25 MG TABLET PO SCH ×2 (09:00→21:00)
[2022-12-11] MEDS: DOCUSATE SODIUM 100 MG/10 ML LIQUID UDCUP NG SCH ×2 (09:00→21:00)
[2022-12-11] MEDS: ETHYL ALCOHOL 62% ANTISEPTIC NASAL SANITIZER 0.6 ML AMPUL NASAL SCH ×2 (09:05→21:17)
[2022-12-11] MEDS: PANTOPRAZOLE SODIUM 40 MG/VIAL IVP SCH ×2 (09:05→21:17)
[2022-12-11] MEDS: MIDODRINE HCL 5 MG TABLET PO SCH (09:06)
[2022-12-11] MEDS: PIPERACILLIN SODIUM/TAZOBACTAM 2.25 GM in DEXTROSE 5%-WATER 50 ML IV SCH ×2 (10:52→21:17)
[2022-12-11] MEDS ORDERED: HEPARIN SODIUM,PORCINE 1,000 UNITS/ML VIAL IVP ONE (12:00)
[2022-12-11 20:01] LABS: GLUCOMETER DEV NAME(LOC) 6S.2
[2022-12-11 20:01] LABS: GLUCOMETER DEV NAME(LOC) 4E.2
[2022-12-12 00:01] LABS: GLUCOMETER DEV NAME(LOC) 4E.2
[2022-12-12] MEDS: IPRATROPIUM BROMIDE 0.5 MG/2.5 ML NEB SOLUTION NEB PRN (05:03)
[2022-12-12] MEDS: ALBUTEROL SULFATE 2.5 MG/0.5 ML NEB SOLUTION NEB PRN (05:03)
[2022-12-12 05:06] VITALS: PULSE 91; RESP 32; O2SAT 95
[2022-12-12 05:09] VITALS: PULSE 91; RESP 32; O2SAT 95
[2022-12-12 05:45] VITALS: BP 64/36; PULSE 84; RESP 18; TEMP 97.8
[2022-12-12 13:16] LABS: GLUCOMETER DEV NAME(LOC) 6N.1
== END 2022-12-12 12:50 | DRG 870 ==
LOC: EMS 09:21 → ICUN 18:59 → ICU 11-14 06:21 → 5N 11-25 19:00 → 6S 12-01 17:09
PROVIDERS: ADMIT Hospitalist; ATTEND Internal Medicine
PROC: 5A1955Z Respiratory Ventilation, Greater than 96 Consecutive Hours (ICD-10-PCS; principal; 2022-11-13)
PROC: 0BH17EZ Insertion of Endotracheal Airway into Trachea, Via Natural or Artificial Opening (ICD-10-PCS; 2022-11-13)
PROC: 5A12012 Performance of Cardiac Output, Single, Manual (ICD-10-PCS; 2022-11-13)
PROC: 02HV33Z Insertion of Infusion Device into Superior Vena Cava, Percutaneous Approach (ICD-10-PCS; 2022-11-13)
PROC: B548ZZA Ultrasonography of Superior Vena Cava, Guidance (ICD-10-PCS; 2022-11-13)
PROC: 5A1D70Z Performance of Urinary Filtration, Intermittent, Less than 6 Hours Per Day (ICD-10-PCS; 2022-11-14)
PROC: 5A1D70Z Performance of Urinary Filtration, Intermittent, Less than 6 Hours Per Day (ICD-10-PCS; 2022-11-17)
PROC: 5A1D70Z Performance of Urinary Filtration, Intermittent, Less than 6 Hours Per Day (ICD-10-PCS; 2022-11-19)
PROC: 5A1D70Z Performance of Urinary Filtration, Intermittent, Less than 6 Hours Per Day (ICD-10-PCS; 2022-11-21)
PROC: 5A1D70Z Performance of Urinary Filtration, Intermittent, Less than 6 Hours Per Day (ICD-10-PCS; 2022-11-25)
PROC: 5A1D70Z Performance of Urinary Filtration, Intermittent, Less than 6 Hours Per Day (ICD-10-PCS; 2022-11-27)
PROC: 5A1D70Z Performance of Urinary Filtration, Intermittent, Less than 6 Hours Per Day (ICD-10-PCS; 2022-11-29)
PROC: 5A1D70Z Performance of Urinary Filtration, Intermittent, Less than 6 Hours Per Day (ICD-10-PCS; 2022-12-02)
PROC: 05HB33Z Insertion of Infusion Device into Right Basilic Vein, Percutaneous Approach (ICD-10-PCS; 2022-12-04)
PROC: 5A1D70Z Performance of Urinary Filtration, Intermittent, Less than 6 Hours Per Day (ICD-10-PCS; 2022-12-04)
PROC: 30233N1 Transfusion of Nonautologous Red Blood Cells into Peripheral Vein, Percutaneous Approach (ICD-10-PCS; 2022-12-06)
PROC: 5A1D70Z Performance of Urinary Filtration, Intermittent, Less than 6 Hours Per Day (ICD-10-PCS; 2022-12-09)
PROC: 5A1D70Z Performance of Urinary Filtration, Intermittent, Less than 6 Hours Per Day (ICD-10-PCS; 2022-12-11)
DX: A41.9 Sepsis, unspecified organism (principal); E43 Unspecified severe protein-calorie malnutrition; J96.00 Acute respiratory failure, unspecified whether with hypoxia or hypercapnia; N18.6 End stage renal disease; J69.0 Pneumonitis due to inhalation of food and vomit; R65.21 Severe sepsis with septic shock; I50.23 Acute on chronic systolic (congestive) heart failure; I71.03 Dissection of thoracoabdominal aorta; I42.9 Cardiomyopathy, unspecified; G93.40 Encephalopathy, unspecified; E87.1 Hypo-osmolality and hyponatremia; I69.354 Hemiplegia and hemiparesis following cerebral infarction affecting left non-dominant side; A04.72 Enterocolitis due to Clostridium difficile, not specified as recurrent; Z68.1 Body mass index [BMI] 19.9 or less, adult; E11.52 Type 2 diabetes mellitus with diabetic peripheral angiopathy with gangrene; K92.1 Melena; Z66 Do not resuscitate; I46.9 Cardiac arrest, cause unspecified; I25.5 Ischemic cardiomyopathy; E03.9 Hypothyroidism, unspecified; D69.6 Thrombocytopenia, unspecified; E78.5 Hyperlipidemia, unspecified; I25.10 Atherosclerotic heart disease of native coronary artery without angina pectoris; I95.9 Hypotension, unspecified; C61 Malignant neoplasm of prostate; D63.1 Anemia in chronic kidney disease; R16.0 Hepatomegaly, not elsewhere classified; Z20.822 Contact with and (suspected) exposure to COVID-19; E11.22 Type 2 diabetes mellitus with diabetic chronic kidney disease; I49.01 Ventricular fibrillation; I73.9 Peripheral vascular disease, unspecified; R79.89 Other specified abnormal findings of blood chemistry; I08.0 Rheumatic disorders of both mitral and aortic valves; I48.91 Unspecified atrial fibrillation; E87.6 Hypokalemia; N28.89 Other specified disorders of kidney and ureter; I49.3 Ventricular premature depolarization; Z85.46 Personal history of malignant neoplasm of prostate; Z79.899 Other long term (current) drug therapy; I25.2 Old myocardial infarction; Z99.2 Dependence on renal dialysis; Z51.5 Encounter for palliative care; Z82.49 Family history of ischemic heart disease and other diseases of the circulatory system; Z87.891 Personal history of nicotine dependence; Z74.01 Bed confinement status
CPT/HCPCS: 36245; 36569; 36600; 70496; 70498; 71045; 71260; 72193; 74018; 74160; 74176; 74178; 76937; 80048; 80053; 80202; 82271; 82805; 82948; 82962; 83605; 83735; 83880; 84100; 84132; 84145; 84484; 85014; 85018; 85025; 85610; 85730; 86171; 86480; 86850; 86900; 86901; 86923; 87015; 87040; 87070; 87081; 87205; 87206; 87324; 87340; 87449; 90935; 92526; 92610; 92950; 93005; 93306; 94002; 94003; 94640; 94799; 97112; 97163; 97167; 97530; 97535; 99291; C9113; G0238; G0378; J0171; J0282; J0610; J0885; J1644; J2060; J2270; J2370; J2543; J3370; J3490; J7030; J7040; J7050; J7060; P9016; P9047; Q9967; 36415-L1; 36415-TC; 70450; 70450-TC; J7613